=== PATIENT | female | born 1950 | race Caucasian/White ===

== ENCOUNTER 2016-07-29 10:39 | Observation (INO) | payer MEDICARE, BC ==
--- NOTE | 2016-07-29 11:10 | ERNOTE ---
Dyspnea - Date Date of Service: 07/29/16 - General Presenting Symptoms: shortness of breath Time Seen by Provider: 07/29/16 10:59 Source: patient - Immun/Allergies/Home Medications Immunizations: IMMUNIZATION HX Immunizations Up to Date Yes History of Influenza Vaccine Yes Hx Pneumococcal Vaccination Yes Allergies/Adverse Reactions: Allergies nitrofurantoin macrocrystalline [From Macrodantin] Allergy (Verified 07/29/16 11 :22) Nausea Sulfa (Sulfonamide Antibiotics) Allergy (Verified 07/29/16 11:22) amiodarone Adverse Reaction (Verified 07/29/16 11:22) lisinopril Adverse Reaction (Verified 07/29/16 11:22) Cough Home Medications: HOME MEDICATIONS Levothyroxine Sodium [Synthroid] 50 mcg PO DAILY 09/06/13 [Last Taken 09/28/15 19:00] Lorazepam 1 mg PO QID PRN 09/06/13 [Last Taken 09/27/15] Aspirin [Aspirin Chewable] 81 mg PO DAILY 12/25/14 [Last Taken 09/28/15] Atorvastatin Calcium 20 mg PO DAILY 12/25/14 [Last Taken 09/28/15 19:00] Cholecalciferol (Vitamin D3) [Vitamin D3] 2,000 unit PO DAILY #30 tablet [Last Taken 09/28/15 19:00] Potassium Chloride [Klor-Con M20] 20 meq PO BID 01/28/16 [Last Taken Unknown] Apixaban [Eliquis] 5 mg PO BID 03/01/16 [Last Taken Unknown] Bumetanide [Bumex] 2 mg PO DAILY 03/01/16 [Last Taken Unknown] Ipratropium/Albuterol Sulfate [Combivent Respimat Inhal [place]] 1 puff IH QID [Last Taken Unknown] Multivitamin [One Daily Essential] 1 each PO DAILY 03/01/16 [Last Taken Unknown] Fluticasone Propionate [Flonase Allergy Relief] 9.9 ml NS 07/23/16 [Last Taken Unknown] Ipratropium/Albuterol Sulfate [Combivent Respimat Inhal [place]] 1 puff IH QID 11/03 [Last Taken Unknown] Ranitidine HCl [Zantac] 150 mg PO BID 07/23/16 [Last Taken Unknown] Spironolactone [Aldactone] 25 mg PO DAILY 07/23/16 [Last Taken Unknown] - History of Present Illness Narrative: Pt woke up this morning feeling pretty good but became more SOB over the next 3- 4 hours. Date (Duration): 07/29/16 Severity: moderate Treatment [employer]: oxygen Initiating event: Reports: other - pt was at pulmonary rehab and it started getting worse Frequency of episodes: Reports: occassional episodes Modifying Factors (Worsens): Reports: activity Review of Systems - Review of Systems Constitutional: Present: See HPI EYE: Present: no symptoms reported ENT: Present: no symptoms reported Respiratory: Present: shortness of breath Cardiology: Present: no symptoms reported Gastrointestinal/Abdominal: Present: no symptoms reported Genitourinary: Present: no symptoms reported Musculoskeletal: Present: no symptoms reported Skin: Present: no symptoms reported Neurological: Present: no symptoms reported Endocrine: Present: no symptoms reported Hematologic/Lymphatic: Present: no symptoms reported Psych: Present: no symptoms reported - Patient's Past Medical History Patient History - Cardiac/Respiratory: Atrial Fibrillation, Coronary Heart Disease, Hypertension, Hyperlipidemia, Myocardial Infarction, Peripheral Vascular Disease, Sleep Apnea, Other Patient History - Cancer: No Hx of Cancer Patient History - Surgical Procedures: Cataracts, Cardiac stent, Pacemaker, Tubal Ligation - Family History Mother Family History - Medical: Diabetes Type 1 Family History - Cardiac/Respiratory: Hypertension Father Family History - Medical: Anxiety Family History - Cardiac/Respiratory: Coronary Heart Disease Brother Family History - Medical: Family History - Cardiac/Respiratory: COPD - Social History Living Situations: home Smoking Status: Former smoker Alcohol Use: none Drug Use: none Physical Exam - Physical Exam General Appearance: Present: wd/wn, alert, moderate distress Eye Exam: Normal inspection: bilateral, PERRL: bilateral Ears, Nose, Throat: Present: normal ENT inspection, hearing grossly normal, normal pharynx Neck: Present: normal inspection, nontender Respiratory: Present: decreased breath sounds, other - fine coarse breath sounds Cardiovascular/Chest: Present: regular rate, rhythm, no murmur, normal peripheral pulses Gastrointestinal/Abdominal: Present: normal bowel sounds, nontender, nondistended, soft, no organomegaly Rectal Exam: Present: deferred Back Exam: Present: normal inspection, normal range of motion Extremity Exam: Present: normal inspection, non-tender, no edema, normal range of motion Neurological Exam: Present: alert, oriented, normal mood/affect Skin Exam: Present: normal color, warm/dry Lymphatic Exam: Present: no adenopathy ED Progress - Results and Orders Patient's Lab Results:: I have reviewed the patient's lab results. - Vital Signs Patient's Vital Signs:: I have reviewed the patient's vital signs. Vital Signs: Vital Signs 07/29/16 07/29/16 10:43 10:49 Temperature 35.3 C L Pulse Rate 84 80 Respiratory 17 12 Rate Blood Pressure 82/66 O2 Sat by Pulse 88 L 91 Oximetry - EKG EKG: NSR - X-Ray X-Ray #1 X-Ray: chest Interpretation: Reviewed by me - Progress/Reassessment Chief Complaint: Dyspnea Progress:: Unchanged - Transfer of Care Expected Disposition: Admit Plan - Plan Plan: Pt will need to be admitted for cautious diuresis. Departure Clinical Impression: CHF (congestive heart failure) - Departure Disposition: [facility] Condition: Fair
[2016-07-29] MEDS ORDERED: ALBUTEROL SULFATE/IPRATROPIUM 3 ML NEBU IH ONE ×2 (11:12→11:13)
[2016-07-29 11:19] LABS: Hematocrit 40.1 % (37.0-47.0); Hemoglobin 13.3 gm/dL (12.5-16.0); Mean Cell Volume 106.4 fl (78-100); Mean Corpuscular Hemoglobin 35.3 pg (27-31); Mean Corpuscular Hgb Conc 33.2 g/dl (32-36); Neutrophil # 4.9 K/mm3 (1.3-6.0); Platelet Count 91 K/mm3 (150-450); Red Blood Count 3.77 M/mm3 (4.2-5.4); Red Cell Distribution Width 20.2 % (11.5-14.0); White Blood Count 6.4 K/mm3 (4.0-10.5)
[2016-07-29 11:42] LABS: Albumin * 2.8 gm/dl (3.4-5.0); Anion Gap 12.5 mmol/L (6.8-13.8); Bilirubin, Total 2.4 mg/dL (0.0-1.1); Calcium * 9.4 mg/dL (7.9-10.9); Carbon Dioxide 26.3 mmol/L (24-32.6); Potassium 3.8 mmol/L (3.4-4.6); Total Protein 7.4 gm/dL (6.2-8.2); Troponin I 0.046 ng/ml (0.00-0.10)
[2016-07-29] MEDS ORDERED: METOLAZONE 5 MG TABLET PO ONE (13:29)
[2016-07-29] MEDS ORDERED: FUROSEMIDE 10 MG/ML VIAL IV ONE (13:29)
[2016-07-29] MEDS ORDERED: METOLAZONE 5 MG TABLET ONE (13:45)
[2016-07-29] MEDS ORDERED: FUROSEMIDE 10 MG/ML VIAL ONE ×2 (13:45)
[2016-07-29 16:42] LABS: Urine Bilirubin Negative (NEGATIVE); Urine Blood 250 /ul (NEGATIVE); Urine Ketone Negative (NEGATIVE); Urine Nitrite Negative (NEGATIVE); Urine Protein Negative (NEGATIVE); Urine Specific Gravity 1.015 SP.GR. (1.005-1.010); Urine Urobilinogen Normal (NORMAL)
[2016-07-29] MEDS ORDERED: SPIRONOLACTONE 25 MG TABLET PO STA (17:02)
--- NOTE | 2016-07-29 17:02 | HP ---
Chief Complaint - Chief Complaint Date of Service: 07/29/16 Time of Service: 17:02 Chief Complaint: Sudden onset of shortness of breath and difficulty in breathing during pulmonary rehabilitation on the morning of admission. History of Present Illness: Patient is a 66-year-old WF with a H/O ILD, COPD, A. fib, liver cirrhosis, anemia, chronic respiratory failure on 2-3 L of O2 who started pulmonary rehabilitation on 07/28/2016 and became suddenly short of breath on 07/29/2016 during pulmonary rehabilitation. Her sats dropped down to 84% on O2. She denied chest pain, syncope,increased pedal edema etc. Her CXR showed increase in interstitial markings though her BNP was only 585 and troponin 0.046. She was admitted for further care and treatment into observation. - Patient's Past Medical History Additional info: PAST MEDICAL HISTORY: CAD[Inf. wall [place] with cardiogenic shock s/p stents RCA/2008], chronic A. fib[ cardioverted in 2013] initially on Coumadin, now on Eliquis 5 mg PO BID. COPD/ILD/chronic respiratory failure on 2-3L O2. 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 KRISTEN : 12/06/2015:EF 55-60%, mild to mod. MR, mild TR, no thrombus LAE, RVSP 44 mm Hg. TTE : 12/11/2015: EF 55%, LAE,RVSP [address] of the chest: 01/02: centrilobular emphysema/ILD. DLCO was reduced at 22% Liver cirrhosis, macrocytic anemia, PAD, HLD. Biventricular pacemaker placement for A. fib 03/2016 Patient History - Cancer: No Hx of Cancer Additional Info: PAST SURGICAL HISTORY: Tubal ligation; stent to RCA 10/2008; cardioversion 2013, 02/2016; bilateral cataract surgery 05/2015; cardiac cath 09/2015[elevated filling pressures with moderate to severe pulmonary HTN, mildly depressed C.I.]; biventricular pacemaker implant 03/2016. - Family History Brother Additional Info: Mother - DM type I Alzheimer's. Father died69 CAD. [place]. Brother died64 COPD. - Social History Living Situations: home Smoking Status: Heavy tobacco smoker - in the past Have you smoked in the past 12 months: No Do you dip or chew tobacco: No Smoking Stop Date: 07/29/08 Patient requests Smoking Cessation Consult: No Initiate information on Smoking Cessation: No Alcohol Use: none Drug Use: none Review Of Systems (GEN) - Review of Systems Generalized/Overall Review: Absent: Weakness, Chills, Fever Respiratory: Present: Shortness of Breath - chronic gradually improving. Absent : Cough Cardiac: Present: Edema. Absent: Chest Pain, Palpitations Abdominal: Absent: Nausea, Vomiting Allergies/Adverse Reactions: Allergies Allergy/AdvReac Type Severity Reaction Status Date / Time nitrofurantoin Allergy Nausea Verified 07/29/16 15:08 macrocrystalline [From Macrodantin] Sulfa (Sulfonamide Allergy Verified 07/29/16 15:08 Antibiotics) amiodarone AdvReac Verified 07/29/16 15:08 lisinopril AdvReac Cough Verified 07/29/16 15:08 Home Medications: HOME MEDICATIONS Levothyroxine Sodium [Synthroid] 50 mcg PO DAILY 09/06/13 [Last Taken 09/28/15 19:00] Lorazepam 1 mg PO QID 09/06/13 [Last Taken 09/27/15] Aspirin [Aspirin Chewable] 81 mg PO DAILY 12/25/14 [Last Taken 09/28/15] Atorvastatin Calcium 20 mg PO HS 12/25/14 [Last Taken 09/28/15 19:00] Cholecalciferol (Vitamin D3) [Vitamin D3] 2,000 unit PO DAILY #30 tablet [Last Taken 09/28/15 19:00] Potassium Chloride [Klor-Con M20] 20 meq PO BID 01/28/16 [Last Taken Unknown] Apixaban [Eliquis] 5 mg PO BID 03/01/16 [Last Taken Unknown] Bumetanide [Bumex] 2 mg PO DAILY 03/01/16 [Last Taken Unknown] Ipratropium/Albuterol Sulfate [Combivent Respimat Inhal [place]] 1 puff IH QID PRN 03/01/16 [Last Taken Unknown] Multivitamin [One Daily Essential] 1 each PO DAILY 03/01/16 [Last Taken Unknown] Fluticasone Propionate [Flonase Allergy Relief] 1 spray NS DAILY 07/23/16 [Last Taken Unknown] Ranitidine HCl [Zantac] 150 mg PO BID 07/23/16 [Last Taken Unknown] Spironolactone [Aldactone] 25 mg PO DAILY 07/23/16 [Last Taken Unknown] Acetaminophen [Tylenol] 325 mg PO Q4H PRN 07/29/16 [Last Taken Unknown] Ipratropium/Albuterol Sulfate [Combivent Respimat Inhal [place]] 1 puff IH QID 05/05 [Last Taken Unknown] Exam - Exam Vital Signs: Vital Signs - Last Taken Temp 36.8 C 07/29/16 15:00 Pulse 80 07/29/16 16:22 Resp 16 07/29/16 15:00 BP 93/63 07/29/16 15:00 Pulse Ox 97 07/29/16 15:00 Constitutional: Present: Middle aged, Looks Older than stated age - on O2 ENT Exam: Present: hearing grossly normal, moist mucous membranes Eye Exam: bilateral eye: PERRL, EOMI Neck: Present: normal inspection, trachea midline Breasts: Present: Exam deferred Respiratory: Present: no respiratory distress, no accessory muscle use, crackles - bilaterally in both lungs Cardiovascular/Chest: Present: regular rate, rhythm, systolic murmur. Absent: tachycardia Peripheral Pulses: carotid (R): 2+, carotid (L): 2+ Abdomen: Present: Normal bowel sounds, soft, nontender, nondistended /Rectal: Present: Exam deferred Extremity: Present: normal inspection, lower extremity edema - 1+ Skin Exam: Present: normal color, warm/dry Appearance: Present: appropriate appearance, appropriate insight, neat Eye contact: Present: cooperative, good eye contact, normal speech Diagnostic Studies: Laboratory Tests 07/29/16 11:10 WBC 6.4 Hgb 13.3 Hct 40.1 MCV 106.4 H Plt Count 91 L 07/29/16 11:10 Plasma Sodium 138 Potassium 3.8 Chloride 101 Carbon Dioxide 26.3 BUN 20 Creatinine 1.33 Est GFR (Non-Af Amer) 42 L Random Glucose 197 H Calcium Adj for Albumin 10.0 Total Bilirubin 2.4 H AST 45 ALT 37 Alkaline Phosphatase 109 Total Protein 7.4 Albumin 2.8 L 07/29/16 11:10 Troponin I 0.046 B-Natriuretic Peptide 585 H CXR: 07/29/2016: 1. Pulmonary venous congestion and interstitial edema suggested. 2. Interval placement of pacemaker 3. Hypoinflated lungs and stable cardiomegaly. Assessment/Plan - Narrative Narrative: 1. Acute on chronic diastolic heart failure: Patient will be given metolazone 1.25 mg followed by furosemide 120 mg IV and spironolactone 50 mg PO x 1 on admission. Check daily weights and I's and O's. oxygen to be titrated to maintain saturation of 90% and greater. Initial troponin was negative. Unclear to what caused exacerbation of CHF. 2. COPD/ILD on 2-3 L of O2: Continue Combivent and inhaler 1-2 puffs 4 times a day and O2 2-4 L. She has joined pulmonary rehabilitation. 3. Chronic A. fib: S/P biventricular pacemaker placement and on Eliquis 5 mg PO BID. 4. Hyperlipidemia: On atorvastatin 20 mg by mouth daily. 5. Liver cirrhosis: History of macrocytic anemia with low platelets, increased bilirubin, currently not being treated.
[2016-07-29] MEDS ORDERED: ALBUTEROL SULFATE/IPRATROPIUM 3 ML NEBU IH PRN (17:03)
[2016-07-29 17:08] LABS: Urine Appearance Cloudy; Urine Bacteria 1+; Urine RBC 25-50 /hpf (0-5); Urine WBC None Seen /hpf (0-5)
[2016-07-29] MEDS: APIXABAN 2.5 MG TABLET PO SCH (20:17)
[2016-07-29] MEDS: FAMOTIDINE 20 MG TABLET PO SCH (20:17)
[2016-07-29] MEDS: LORazepam 1 MG TABLET PO SCH (20:19)
[2016-07-29] MEDS ORDERED: ROSUVASTATIN CALCIUM 10 MG TABLET PO SCH (21:00)
[2016-07-29] MEDS ORDERED: HYDROcodone/ACETAMINOPHEN 1 EACH TABLET PO PRN (23:40)
[2016-07-30 05:56] LABS: Anion Gap 13.9 mmol/L (6.8-13.8); BUN/Creatinine Ratio 14.9 (9.0-21.6); Calcium * 9.6 mg/dL (7.9-10.9); Carbon Dioxide 26.7 mmol/L (24-32.6); Estimated Creat Clear 34.2; Potassium 3.6 mmol/L (3.4-4.6)
[2016-07-30] MEDS ORDERED: LEVOTHYROXINE SODIUM 50 MCG TABLET PO SCH (07:00)
[2016-07-30] MEDS ORDERED: FLUTICASONE PROPIONATE 120 SPRAY INHALER NS SCH (09:00)
[2016-07-30] MEDS ORDERED: ASPIRIN 81 MG TAB.CHEW PO SCH (09:00)
[2016-07-30] MEDS ORDERED: FUROSEMIDE 10 MG/ML VIAL IV STA (09:18)
[2016-07-30] MEDS: APIXABAN 2.5 MG TABLET PO SCH (09:22)
[2016-07-30] MEDS: LORazepam 1 MG TABLET PO SCH ×2 (09:23→13:49)
[2016-07-30] MEDS: FAMOTIDINE 20 MG TABLET PO SCH (09:24)
[2016-07-30] MEDS ORDERED: FUROSEMIDE 100 MG, FUROSEMIDE 20 MG IV STA ×2 (09:35)
[2016-07-30] MEDS ORDERED: SPIRONOLACTONE 100 MG TABLET PO ONE (09:40)
--- NOTE | 2016-07-30 11:01 | DS ---
(1) Acute on chronic diastolic heart failure Problem: Acute (2) Hematuria Diagnosis(s): Scheduled for a CT of abdomen/pelvis W/O as outpt; then urology consult. Problem: Acute (3) COPD/ILD on 2-3L O2 Problem: Chronic (4) Atrial fibrillation, chronic Diagnosis(s): s/p biventricular pacemaker placement and on Eliquis 5 mg PO BID. Problem: Chronic (5) Cirrhosis of liver Diagnosis(s): With macrocytic anemia, decreased platelets, elevated bilirubin. Problem: Chronic Qualifiers: Hepatic cirrhosis type: other cirrhosis Qualified Code(s): K74.69 - Other cirrhosis of liver (6) CAD (coronary artery disease), [place] coronary artery Diagnosis(s): with stent to RCA in 2008. Problem: Chronic Qualifiers: [place] vs. transplanted heart: [place] heart Associated angina: without angina Qualified Code(s): I25.10 - Atherosclerotic heart disease of [place] coronary artery without angina pectoris Description of Stay: DATE OF ADMISSION: 07/29/2016. DATE OF DISCHARGE: 07/30/2016. HOSPITAL COURSE: Malorie Joseph is a 66-year-old WF with a H/O ILD, COPD, A. fib, liver cirrhosis , anemia, hypothyroidism, chronic respiratory failure on 2-3 L of O2 who became suddenly short of breath on 07/29/2016 on her second day of pulmonary rehabilitation with sats dropping down to 84-86% on 4 L O2. Her weight was 151 pounds[up 4 pounds from her dry weight of 147 pounds]. She was planning to take Bumex 3 mg after she went home. She denied chest pain, syncope, palpitations etc. Mild increase in pedal edema noted. Her CXR showed increase in interstitial markings though her BNP was only 585 and troponin 0.046. She was admitted into observation for further care and treatment. Patient diuresed well with metolazone PO, furosemide IV and spironolactone PO. She was in negative balance by 2 L. She was advised to take extra bumetanide 1 mg when she gains 3-4 pounds. She also had painless hematuria w/o UTI . Scheduled to undergo CT of the abdomen/pelvis W/O as an outpatient and will see a urologist as a consult. Patient was educated regarding weighing herself on a daily basis, taking extra bumetanide when she gains weight and being more compliant with her medication. She is being discharged in a stable condition with follow-up in 2 weeks. Can restart pulmonary rehabilitation at a slow pace for 5-10 mins at a time [ which may not be possible as one has to exercise for 45 minutes in order for Medicare to pay for a session]. Procedures Performed: none Results and Findings: Laboratory Tests 07/29/16 11:10 WBC 6.4 RBC 3.77 L Hgb 13.3 Plt Count 91 L 07/29/16 07/30/16 11:10 05:00 Plasma Sodium 138 136 Potassium 3.8 3.6 Chloride 101 99 Carbon Dioxide 26.3 26.7 BUN 20 20 Creatinine 1.33 1.34 Est GFR (Non-Af Amer) 42 L 42 L Random Glucose 197 H 101 D Calcium Adj for Albumin 10.0 Total Bilirubin 2.4 H AST 45 ALT 37 Alkaline Phosphatase 109 Total Protein 7.4 Albumin 2.8 L CXR: 07/29/2016: 1. Pulmonary venous congestion and interstitial edema suggested. 2. Interval placement of pacemaker 3. Hypoinflated lungs and stable cardiomegaly. 07/29/16 07/30/16 15:00 05:34 Weight 68.3 kg 66.8 kg Negative balance -2115 ml. Discharge Disposition: Home self care Disposition: Home self-care Condition: Fair Discharge Activity: Activity as tolerated Discharge Diet: Low salt, Low fat/chol, High Fiber Problem Oriented Discharge Instructions to Patient/Family: Heart Failure, Easy- to-Read Additional Patient Instructions (free text): Resume home meds from 07/31/2016. Make appointment with one of the urologists for hematuria after a CT scan of abdomen/pelvis w/o contrast is done. CT 08/04 AT 9:00. Follow up with Urology Dr. Altamirano 08/08 at 11:30 in [facility] office. Dry weight 147 pounds. If weight increases by 3 pounds patient to take 1 mg of extra Bumex. Pulmonary rehabilitation can be rescheduled. Can start Pulm Rehab on 08/01/2016. Continue oxygen as before. Follow-up with the [facility] specialists as previously scheduled. Follow-up with Dr. Gomez in 2 weeks. 08/13 at 2:25 Complete Home Medications List: Complete Home Medication List: Levothyroxine Sodium [Synthroid] 50 mcg PO DAILY 09/06/13 Lorazepam 1 mg PO QID 09/06/13 Aspirin [Aspirin Chewable] 81 mg PO DAILY 12/25/14 Atorvastatin Calcium 20 mg PO HS 12/25/14 Cholecalciferol (Vitamin D3) [Vitamin D3] 2,000 unit PO DAILY #30 tablet Potassium Chloride [Klor-Con M20] 20 meq PO BID 01/28/16 Apixaban [Eliquis] 5 mg PO BID 03/01/16 Bumetanide [Bumex] 2 mg PO DAILY 03/01/16 Ipratropium/Albuterol Sulfate [Combivent Respimat Inhal [place]] 1 puff IH QID PRN 03/01/16 Multivitamin [One Daily Essential] 1 each PO DAILY 03/01/16 Fluticasone Propionate [Flonase Allergy Relief] 1 spray NS DAILY 07/23/16 Ranitidine HCl [Zantac] 150 mg PO BID 07/23/16 Spironolactone [Aldactone] 25 mg PO DAILY 07/23/16 Acetaminophen [Tylenol] 325 mg PO Q4H PRN 07/29/16 Ipratropium/Albuterol Sulfate [Combivent Respimat Inhal [place]] 1 puff IH QID 05/05 Amb Orders for Discharge: CT Abdomen/Pelvis W/O Contrast Time Frame: 1 Week, Location: Determined By Patient
[2016-07-30] MEDS ORDERED: CHOLECALCIFEROL 1,000 UNIT CAPSULE PO SCH (12:00)
[2016-07-30 14:26] VITALS: BP 92/61
== END 2016-07-30 14:45 | disposition home or self-care (01) ==
LOC: ER 10:39 → INTOOBSV 13:37 → MS 13:37 → OBSVTOIN 13:37
PROVIDERS: ADMIT Internal Medicine; ATTEND Internal Medicine
DX: I50.33 Acute on chronic diastolic (congestive) heart failure (principal); J44.9 Chronic obstructive pulmonary disease, unspecified; Z87.891 Personal history of nicotine dependence; I48.2 Chronic atrial fibrillation; Z79.01 Long term (current) use of anticoagulants; E78.5 Hyperlipidemia, unspecified; K74.69 Other cirrhosis of liver; I25.10 Atherosclerotic heart disease of native coronary artery without angina pectoris; R31.9 Hematuria, unspecified
CPT/HCPCS: 36415; 36600; 71010; 80048; 80053; 81001; 82803; 83880; 84484; 85025; 93005; 94760; 96374; 99284; G0378

== ENCOUNTER 2016-08-25 13:00 | Observation (INO) | payer MEDICARE, BC ==
[2016-08-25 13:26] LABS: Prothrombin Time (Patient) 13.5 Seconds (9.4-11.4)
[2016-08-25 13:27] LABS: INR 1.3 INR (0.90-1.10)
[2016-08-25 13:29] LABS: Anion Gap 14.6 mmol/L (6.8-13.8); BUN/Creatinine Ratio 15.8 (9.0-21.6); Blood Urea Nitrogen 19 mg/dL (3-23); Carbon Dioxide 24.2 mmol/L (24-32.6); Chloride 101 mmol/L (97-106); Glucose * 139 mg/dL (70-110); Potassium 3.8 mmol/L (3.4-4.6); Sodium 136 mmol/L (132-142)
--- NOTE | 2016-08-25 14:39 | HP ---
Chief Complaint - Chief Complaint Date of Service: 08/25/16 Time of Service: 14:38 Chief Complaint: Shortness of breath and weight gain for the last few days. History of Present Illness: Patient is a 65-year-old WF with a history of CAD, chronic A. fib, BiV pacemaker in 03/2016, PAD, HLD, COPD/ILD on O2 who came into the office follow up. She stated that she was significantly short of breath in spite of doubling up on her Bumex [2mg -4 mg], watching her diet, and continued to gain weight for the last 1 week. She denied any chest pain. She was admitted for further care and treatment. - Patient's Past Medical History Additional info: PAST MEDICAL HISTORY: CAD[Inf. wall [place] with cardiogenic shock s/p stents ], chronic A. fib[ cardioverted in 2013] initially on Coumadin, now on Eliquis 5 mg PO BID. COPD/ILD/chronic respiratory failure on 2-3L O2. 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 KRISTEN : 12/06/2015:EF 55-60%, mild to mod. MR, mild TR, no thrombus LAE, RVSP 44 mm Hg. TTE : 12/11/2015: EF 55%, LAE,RVSP [address] of the chest: 01/02: centrilobular emphysema/ILD. DLCO was reduced at 22% Liver cirrhosis, macrocytic anemia, PAD, HLD. Biventricular pacemaker placement for A. fib 03/2016 Patient History - Cancer: No Hx of Cancer Additional Info: PAST SURGICAL HISTORY: Tubal ligation; stent to RCA 10/2008; cardioversion 2013, 02/2016; bilateral cataract surgery 05/2015; cardiac cath 09/2015[elevated filling pressures with moderate to severe pulmonary HTN, mildly depressed C.I.]; biventricular pacemaker implant 03/2016. Patient History - Other: None - Family History Mother Family History - Medical: Diabetes Type 1 Family History - Cardiac/Respiratory: Hypertension Father Family History - Medical: Anxiety Family History - Cardiac/Respiratory: Coronary Heart Disease Brother Additional Info: Mother - DM type I Alzheimer's. Father died69 CAD. [place]. Brother died64 COPD. - Social History Living Situations: significant other Abuse History: No History of abuse Psych History: Hx of Depression Does anyone smoke in the home?: No Smoking Status: Former smoker - 1 PPD x 45 yrs; quit in 2010. Have you smoked in the past 12 months: No Do you dip or chew tobacco: No Smoking Start Date: 07/20/64 Smoking Stop Date: 07/20/10 Patient requests Smoking Cessation Consult: No Initiate information on Smoking Cessation: No Alcohol Use: none Drug Use: none - Immunizations Immunizations Up to Date: Yes Hx Pneumococcal Vaccination: Yes History of Influenza Vaccine: Yes Review Of Systems (GEN) - Review of Systems Generalized/Overall Review: Present: Weakness, Fatigue Respiratory: Present: Cough, Shortness of Breath Cardiac: Present: Edema - [place] Immunizations: IMMUNIZATION HX Immunizations Up to Date Yes History of Influenza Vaccine Yes Hx Pneumococcal Vaccination Yes Allergies/Adverse Reactions: Allergies Allergy/AdvReac Type Severity Reaction Status Date / Time nitrofurantoin Allergy Nausea Verified 07/29/16 15:08 macrocrystalline [From Macrodantin] Sulfa (Sulfonamide Allergy Verified 07/29/16 15:08 Antibiotics) amiodarone AdvReac Verified 07/29/16 15:08 lisinopril AdvReac Cough Verified 07/29/16 15:08 Home Medications: HOME MEDICATIONS Levothyroxine Sodium [Synthroid] 50 mcg PO DAILY 09/06/13 [Last Taken 08/25/16 09:00] Lorazepam 1 mg PO QID 09/06/13 [Last Taken 09/27/15] Aspirin [Aspirin Chewable] 81 mg PO DAILY 12/25/14 [Last Taken 08/22/16 09:00] Atorvastatin Calcium 20 mg PO HS 12/25/14 [Last Taken 08/24/16 21:00] Cholecalciferol (Vitamin D3) [Vitamin D3] 2,000 unit PO DAILY #30 tablet [Last Taken 08/25/16 09:00] Potassium Chloride [Klor-Con M20] 20 meq PO BID 01/28/16 [Last Taken 08/25/16 09 :00] Apixaban [Eliquis] 5 mg PO BID 03/01/16 [Last Taken 08/25/16 09:00] Bumetanide [Bumex] 4 mg PO DAILY 03/01/16 [Last Taken 08/25/16 09:00] Ipratropium/Albuterol Sulfate [Combivent Respimat Inhal [place]] 1 puff IH QID PRN 03/01/16 [Last Taken 08/25/16 09:00] Multivitamin [One Daily Essential] 1 each PO DAILY 03/01/16 [Last Taken 09:00] Fluticasone Propionate [Flonase Allergy Relief] 1 spray NS DAILY 07/23/16 [Last Taken 08/25/16 09:00] Ranitidine HCl [Zantac] 150 mg PO BID 07/23/16 [Last Taken 08/25/16 09:00] Spironolactone [Aldactone] 25 mg PO DAILY 07/23/16 [Last Taken 08/25/16 09:00] Acetaminophen [Tylenol] 325 mg PO Q4H PRN 07/29/16 [Last Taken Unknown] Ipratropium/Albuterol Sulfate [Combivent Respimat Inhal [place]] 1 puff IH QID 05/05 [Last Taken 08/25/16 10:30] Carvedilol [Coreg] 3.125 mg PO BID 08/25/16 [Last Taken Unknown] Ipratropium [place] 0.2 mg IH QID 08/25/16 [Last Taken Unknown] Exam - Exam Vital Signs: Vital Signs - Last Taken Temp 36.4 C L 08/25/16 14:16 Pulse 80 08/25/16 14:16 Resp 20 08/25/16 14:16 BP 103/64 08/25/16 14:16 Pulse Ox 90 08/25/16 14:16 Constitutional: Present: Middle aged, Looks Older than stated age - on 2-3 L O2 looks uncomfortable. ENT Exam: Present: hearing grossly normal, moist mucous membranes Eye Exam: bilateral eye: PERRL, EOMI Neck: Present: non-tender, normal inspection Respiratory: Present: decreased breath sounds, crackles - bilaterally. Absent: accessory muscle use Cardiovascular/Chest: Present: regular rate, rhythm, systolic murmur. Absent: tachycardia Peripheral Pulses: carotid (R): 2+, carotid (L): 2+ Abdomen: Present: Normal bowel sounds, soft, nontender, nondistended Extremity: Present: lower extremity edema - 1+ Skin Exam: Present: warm/dry, pallor Neurologic: Present: no motor/sensory deficits, alert, normal mood/affect, oriented x 3 Eye contact: Present: cooperative, good eye contact, normal speech Diagnostic Studies: Laboratory Tests 08/25/16 13:12 WBC 6.5 Hgb 14.3 Hct 42.6 Plt Count 110 L 08/25/16 13:09 Plasma Sodium 137 Potassium 3.8 Chloride 101 Carbon Dioxide 24.2 BUN 19 Creatinine 1.20 Est GFR (Non-Af Amer) 48 L Random Glucose 139 H 08/25/16 14:16 Weight 70.4 kg Assessment/Plan - Narrative Narrative: ssessment/Plan - Narrative Narrative: 1. Acute on chronic diastolic heart failure: Patient will be given metolazone 2.5 mg PO x1 followed by furosemide 240 mg IV and spironolactone 100 mg PO x 1 on admission. oxygen to be titrated to maintain saturation of 90% and greater. BMP on 08/26/16. Check daily weights and I's and O's. 2. COPD/ILD on 2-3 L of O2: Continue Combivent and inhaler 1-2 puffs 4 times a day and O2 2-4 L. 3. Chronic A. fib: Chronic and stable. Continue Eliquis 5 mg PO BID. S/P biventricular pacemaker placement 03/2016. 4. Hyperlipidemia: Chronic and stable. Continue atorvastatin 20 mg PO daily. 5. Liver cirrhosis: History of macrocytic anemia with low platelets -stable Additional CC's: Dr. Lugo
[2016-08-25] MEDS ORDERED: METOLAZONE 2.5 MG TABLET PO ONE (14:50)
[2016-08-25 15:03] LABS: Hematocrit 42.6 % (37.0-47.0); Hemoglobin 14.3 gm/dL (12.5-16.0); Mean Cell Volume 107.8 fl (78-100); Mean Corpuscular Hemoglobin 36.2 pg (27-31); Mean Corpuscular Hgb Conc 33.6 g/dl (32-36); Mean Platelet Volume 10.1 fl (6.0-9.5); Neutrophil # 4.8 K/mm3 (1.3-6.0); Neutrophil % 74.1 % (42-75.0); Platelet Count 110 K/mm3 (150-450); Red Blood Count 3.95 M/mm3 (4.2-5.4); Red Cell Distribution Width 20.4 % (11.5-14.0); White Blood Count 6.5 K/mm3 (4.0-10.5)
[2016-08-25] MEDS ORDERED: ALBUTEROL SULFATE/IPRATROPIUM 3 ML NEBU IH PRN (15:18)
[2016-08-25] MEDS ORDERED: ACETAMINOPHEN 325 MG TABLET PO PRN (15:18)
[2016-08-25] MEDS ORDERED: FUROSEMIDE IV ONE (15:45)
[2016-08-25] MEDS ORDERED: NORMAL SALINE IV ONE (15:45)
[2016-08-25] MEDS ORDERED: SPIRONOLACTONE 100 MG TABLET PO ONE (16:00)
--- NOTE | 2016-08-25 16:06 | OR ---
Anesthesia Procedure Note - Anesthesia Procedure Note Date of Service: 08/25/16 Narrative: Vital Signs - Last Taken Temp 36.4 C L 08/25/16 14:16 Pulse 80 08/25/16 14:16 Resp 20 08/25/16 14:16 BP 103/64 08/25/16 14:16 Pulse Ox 90 08/25/16 14:16 O2 Oxygen Delivery Method Nasal Cannula 08/25/16 16:05 ANESTHESIA PROCEDURE NOTE Date of Procedure: 08/25/2016. Time of procedure: 1550. Performed by: Tim Bustillo CRNA Sports Physiotherapist: None. Preprocedure diagnosis: Congestive heart failure, difficult IV access. Post procedure diagnosis: Same. Procedure: Peripheral vein IV insertion. Indications: This is a 66-year-old female in need of an IV whereas nursing staff has been able to establish an IV. Findings: See below. Details of the procedure: Skin over the intended target site was cleansed with alcohol. A 20-gauge IV catheter was inserted into a right hand vein. A sterile dressing was applied over the insertion site. The line was then flushed with sterile saline solution. EBL: Minimal. Fluids: N/A. Specimen: N/A. Post procedure condition: The patient tolerated the procedure well. No complications were noted. Thank you for this consultation. Tim Bustillo CRNA
[2016-08-25] MEDS: LORazepam 1 MG TABLET PO SCH ×2 (16:19→20:31)
[2016-08-25] MEDS ORDERED: FLU VACC QS2016-17 36MOS UP/PF 60 MCG/0.5 ML DISP.SYRIN IM ONE (18:00)
[2016-08-25] MEDS: CARVEDILOL 3.125 MG TABLET PO SCH (20:31)
[2016-08-25] MEDS: FAMOTIDINE 20 MG TABLET PO SCH (20:31)
[2016-08-25] MEDS: APIXABAN 2.5 MG TABLET PO SCH (20:31)
[2016-08-25] MEDS ORDERED: ROSUVASTATIN CALCIUM 10 MG TABLET PO SCH (21:00)
[2016-08-25 22:29] LABS: Potassium 3.5 mmol/L (3.4-4.6)
[2016-08-25 23:02] LABS: Anion Gap 14.3 mmol/L (6.8-13.8); BUN/Creatinine Ratio 16.3 (9.0-21.6); Calcium * 9.4 mg/dL (7.9-10.9); Carbon Dioxide 28.2 mmol/L (24-32.6); Estimated Creat Clear 35.5; Potassium 3.5 mmol/L (3.4-4.6)
[2016-08-25] MEDS ORDERED: SPIRONOLACTONE 100 MG TABLET PO SCH (23:30)
[2016-08-25] MEDS ORDERED: IPRATROPIUM BROMIDE 0.5 MG/2.5 ML VIAL.NEB IH SCH (23:35)
[2016-08-25] MEDS ORDERED: ALBUTEROL SULFATE 5 MG/ML BTL IH SCH (23:45)
[2016-08-25] MEDS ORDERED: SPIRONOLACTONE 25 MG TABLET ONE (23:54)
[2016-08-26] MEDS ORDERED: SPIRONOLACTONE 25 MG TABLET PO ONE (00:15)
[2016-08-26 05:37] LABS: Anion Gap 12.8 mmol/L (6.8-13.8); BUN/Creatinine Ratio 17.1 (9.0-21.6); Calcium * 9.1 mg/dL (7.9-10.9); Carbon Dioxide 26.4 mmol/L (24-32.6); Estimated Creat Clear 39.1; Potassium 3.2 mmol/L (3.4-4.6)
[2016-08-26] MEDS ORDERED: POTASSIUM CHLORIDE 20 MEQ TABLET.SA PO ONE (06:21)
[2016-08-26] MEDS ORDERED: SPIRONOLACTONE 100 MG TABLET PO SCH (06:30)
--- NOTE | 2016-08-26 06:35 | PN ---
Subjective - Date and Time Seen Date: 08/26/16 Time: 06:26 Subjective Narrative: Patient seen this morning stated she was feeling much better. She had frequent urination overnight and was feeling tired and need to sleep. Her breathing was no longer labored and she wasn't wearing oxygen at the time. Objective - Review of Systems Generalized/Overall Review: Reports: No Symptoms Reported EENTM: Reports: No Symptoms Reported Respiratory: Reports: Wheezing Cardiac: Reports: No Symptoms Reported Abdominal: Reports: No Symptoms Reported Genitourinary Symptoms: Reports: Frequency Musculoskeletal Complaints: Reports: No Symptoms Reported Neurological: Reports: No Symptoms Reported Skin: Reports: No Symptoms Reported - Vitals Vitals: Last Vital Signs Temp 36.6 C 08/26/16 03:09 Pulse 76 08/26/16 03:09 Resp 22 H 08/26/16 03:09 BP 90/56 08/26/16 03:09 Pulse Ox 86 L 08/26/16 03:09 - Abnormal Lab Findings Abnormal Lab Findings: Abnormal Lab Results 08/25/16 08/25/16 08/25/16 Range/Units 13:05 13:09 13:12 RBC 3.95 L (4.2-5.4) M/mm3 MCV 107.8 H (78-100) fl MCH 36.2 H (27-31) pg RDW 20.4 H (11.5-14.0) % Plt Count 110 L (150-450) K/mm3 MPV 10.1 H (6.0-9.5) fl Immature Gran % (Auto) 0.50 H (0.001-0.429) % Lymphocytes % 14.0 L (20-51) % Eosinophils % 4.0 H (0.0-3.0) % Basophils % 1.1 H (0.0-1.0) % Lymphocytes # 0.9 L (1.5-3.5) k/mm3 PT 13.5 H (9.4-11.4) Seconds INR (Anticoag Therapy) 1.30 H (0.90-1.10) INR Potassium (3.4-4.6) mmol/L Anion Gap 14.6 H (6.8-13.8) mmol/L Est GFR (Non-Af Amer) 48 L (60-130) mL/min Random Glucose 139 H (70-110) mg/dL B-Natriuretic Peptide (5-325) pg/mL 08/25/16 08/25/16 08/26/16 Range/Units 22:00 22:51 05:05 RBC (4.2-5.4) M/mm3 MCV (78-100) fl MCH (27-31) pg RDW (11.5-14.0) % Plt Count (150-450) K/mm3 MPV (6.0-9.5) fl Immature Gran % (Auto) (0.001-0.429) % Lymphocytes % (20-51) % Eosinophils % (0.0-3.0) % Basophils % (0.0-1.0) % Lymphocytes # (1.5-3.5) k/mm3 PT (9.4-11.4) Seconds INR (Anticoag Therapy) (0.90-1.10) INR Potassium 3.2 L (3.4-4.6) mmol/L Anion Gap 14.3 H (6.8-13.8) mmol/L Est GFR (Non-Af Amer) 44 L 49 L (60-130) mL/min Random Glucose 139 H (70-110) mg/dL B-Natriuretic Peptide 769 H (5-325) pg/mL - Exam Constitutional: Present: Alert, Oriented x3, Cooperative, Well developed, No distress, Middle aged ENT Exam: Present: moist mucous membranes Breasts: Present: Exam deferred Respiratory: Present: chest non-tender, no accessory muscle use, decreased breath sounds, crackles Cardiovascular/Chest: Present: normal peripheral pulses, regular rate, rhythm, no chest tenderness, no edema, no JVD Abdomen: Present: Normal bowel sounds, soft, nontender, nondistended Extremity: Present: normal range of motion, non-tender, normal inspection, no calf tenderness Skin Exam: Present: normal color, warm/dry Neurologic: Present: oriented x 3 Appearance: Present: appropriate appearance Eye contact: Present: cooperative Thoughts: Present: normal thought pattern Assessment/Plan Plan Narrative: Acute on chronic diastolic heart failure: On adm pt was given metolazone 2.5 mg PO x1 followed by furosemide 240 mg IV and spironolactone 100 mg PO x 1. Oxygen to be titrated to maintain saturation of 90% and greater. 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 Chronic A. fib:- Stable Continue Eliquis 5 mg PO BID. 03/2016 S/P : biventricular pacemaker placement Hyperlipidemia:- stable Continue atorvastatin 20 mg PO daily. Liver cirrhosis: History of macrocytic anemia with low platelets -stable VTE ppx: Code Status : Full with restriction Time 20 minutes - Problems/Diagnosis (1) Acute on chronic diastolic heart failure Problem: Acute (2) Atrial fibrillation Problem: Chronic (3) CKD (chronic kidney disease) stage 3, GFR 30-59 ml/min Problem: Chronic
[2016-08-26] MEDS ORDERED: LEVOTHYROXINE SODIUM 50 MCG TABLET PO SCH (07:00)
[2016-08-26] MEDS ORDERED: SPIRONOLACTONE 100 MG TABLET PO ONE (07:15)
[2016-08-26] MEDS: LORazepam 1 MG TABLET PO SCH ×3 (08:50→16:49)
[2016-08-26] MEDS: CARVEDILOL 3.125 MG TABLET PO SCH (08:50)
[2016-08-26] MEDS: APIXABAN 2.5 MG TABLET PO SCH (08:50)
[2016-08-26] MEDS: FAMOTIDINE 20 MG TABLET PO SCH (08:50)
[2016-08-26] MEDS ORDERED: CHOLECALCIFEROL 1,000 UNIT CAPSULE PO SCH (09:00)
[2016-08-26] MEDS ORDERED: FLUTICASONE PROPIONATE 120 SPRAY INHALER NS SCH (09:00)
[2016-08-26] MEDS ORDERED: METOLAZONE 2.5 MG TABLET PO ONE (09:30)
[2016-08-26] MEDS ORDERED: NORMAL SALINE IV ONE (10:00)
[2016-08-26] MEDS ORDERED: FUROSEMIDE IV ONE (10:00)
[2016-08-26 15:18] LABS: Anion Gap 11.2 mmol/L (6.8-13.8); BUN/Creatinine Ratio 12.6 (9.0-21.6); Calcium * 10.1 mg/dL (7.9-10.9); Carbon Dioxide 30.5 mmol/L (24-32.6); Estimated Creat Clear 26.2; Potassium 3.7 mmol/L (3.4-4.6)
[2016-08-26 16:18] VITALS: BP 88/59
--- NOTE | 2016-08-26 16:51 | DS ---
(1) Acute on chronic diastolic heart failure Problem: Acute (2) Atrial fibrillation, chronic Diagnosis(s): S/P BiV PCM -03/2016 on Eliquis 5 mg PO BID. Problem: Chronic (3) COPD/ILD on 3-4 L O2 Diagnosis(s): Centrilobular emphysema on CT Problem: Chronic (4) CKD (chronic kidney disease) stage 3, GFR 30-59 ml/min Problem: Chronic (5) Cirrhosis of liver Diagnosis(s): with macrocytic anemia and decreased platelets. Problem: Chronic Qualifiers: Hepatic cirrhosis type: other cirrhosis Qualified Code(s): K74.69 - Other cirrhosis of liver Description of Stay: DATE OF ADMISSION: 08/25/2016. DATE OF DISCHARGE: 08/26/2016. HOSPITAL COURSE: Malorie Joseph is a 66-year-old WF with history of CAD[stent to RCA in 2008], chronic A. fib on Eliquis 5 mg PO BID, BiV PCM [03/2016], COPD/ILD on 2-4 L O2 who found to be significantly short of breath with weight gain in spite of doubling on her bumetanide from 2-4 mg for the last week when seen in office for a follow-up appointment. Patient diuresed well with metolazone, furosemide and spironolactone X 2 days. Her weight dropped from 70.4 kg on admission to 66.3 kg at the time of discharge. Electrolytes were monitored. Patient did not notice a marked difference in her dyspnea. Ipratropium IH was D/molly and change to DuoNeb TID IH. Will be adding metolazone /Zaroxolyn and spironolactone to bumetanide when discharged and electrolytes will be monitored. Patient will be seen in the office on 08/28/16 with ANA ROSA and have an echo as an outpatient prior to seeing Dr. Lugo on 09/02/16.[This was also discussed with Dr. Lugo.]. Other options were discussed with the patient including further invasive studies including [facility] etc. A total of 30 minutes was spent in this encounter of which more than 50% was spent [id number] with the patient and her discussing treatment options , test results and patient education. Greater than 30 minutes was spent on progress note, preparation and dictating discharge summary. Procedures Performed: none Results and Findings: Laboratory Tests 08/25/16 13:12 WBC 6.5 Hgb 14.3 Hct 42.6 MCV 107.8 H Plt Count 110 L 08/25/16 08/25/16 08/26/16 08/26/16 13:09 22:51 05:05 15:00 Sodium 137 140 134 134 Potassium 3.8 3.5 3.2 L 3.7 Chloride 101 100 98 96 Carb.dioxide 24.2 28.2 26.4 30.5 BUN 19 21 20 22 Creatinine 1.20 1.29 1.17 1.75 D Est GFR 48 L 44 L 49 L 31 L 08/25/16 08/25/16 13:00 22:00 Troponin I 0.066 B-Natriuretic Peptide 769 H 08/25/16 08/26/16 08/26/16 14:16 05:12 15:52 Weight 70.4 kg 67.676 kg 66.315 kg Discharge Disposition: Home self care Disposition: Home self-care Condition: Undetermined Discharge Activity: Activity as tolerated Discharge Diet: Low salt, Low fat/chol, High Fiber Referrals: Liliana Colindres MD [Primary Care Provider] - Additional Patient Instructions (free text): Appt with Dr. Gomez on 08/28/16 with BMP done prior to visit. Patient to keep appt. with Dr. Lugo on 09/02/2015.[ please confirm]. patient to start diuretics on 08/27/16. New medications: 1. Zaroxolyn/metolazone : which always has to be taken half hour before Bumex/ bumetanide for it to act inefficiently 2. Spironolactone: Which has to be taken with bumetanide 3. DuoNeb: Combination of ipratropium and albuterol solutions[instead of ipratropium alone]. Meds discontinued: Potassium. Ipatropium solution tid thro' nebulizer. Continue O2 at 2-4 L as before. Prescriptions (Any new or edited meds): Albuterol Sulfate/Ipratropium [Duoneb 2.5-0.5MG/3ML Soln] 3 ml IH QID #30 nebu Bumetanide [Bumex] 4 mg PO DAILY@1100 #60 tablet Metolazone [Zaroxolyn] 2.5 mg PO DAILY@1030 #30 tablet Spironolactone [Aldactone] 50 mg PO DAILY@1100 #30 tablet Complete Home Medications List: Complete Home Medication List: Levothyroxine Sodium [Synthroid] 50 mcg PO DAILY 09/06/13 Lorazepam 1 mg PO QID 09/06/13 Atorvastatin Calcium 20 mg PO HS 12/25/14 Cholecalciferol (Vitamin D3) [Vitamin D3] 2,000 unit PO DAILY #30 tablet Apixaban [Eliquis] 5 mg PO BID 03/01/16 Ipratropium/Albuterol Sulfate [Combivent Respimat Inhal [place]] 1 puff IH QID PRN 03/01/16 Multivitamin [One Daily Essential] 1 each PO DAILY 03/01/16 Fluticasone Propionate [Flonase Allergy Relief] 1 spray NS DAILY 07/23/16 Ranitidine HCl [Zantac] 150 mg PO BID 07/23/16 Acetaminophen [Tylenol] 325 mg PO Q4H PRN 07/29/16 Carvedilol [Coreg] 3.125 mg PO BID 08/25/16 Albuterol Sulfate/Ipratropium [Duoneb 2.5-0.5MG/3ML Soln] 3 ml IH QID #30 nebu 08/26/16 Bumetanide [Bumex] 4 mg PO DAILY@1100 #60 tablet 08/26/16 Metolazone [Zaroxolyn] 2.5 mg PO DAILY@1030 #30 tablet 08/26/16 Spironolactone [Aldactone] 50 mg PO DAILY@1100 #30 tablet 08/26/16 Amb Orders for Discharge: Basic Metabolic Panel Time Frame: 2 Days, Location: Determined By Patient US Echocardiogram 2D/M Mode * Time Frame: 5 Days, Location: Determined By Patient
== END 2016-08-26 19:30 | disposition home or self-care (01) ==
LOC: LAB 13:00 → MS 14:13
PROVIDERS: ADMIT Internal Medicine; ATTEND Internal Medicine
DX: I48.91 Unspecified atrial fibrillation (principal); I50.33 Acute on chronic diastolic (congestive) heart failure; J43.2 Centrilobular emphysema; E78.5 Hyperlipidemia, unspecified; Z87.891 Personal history of nicotine dependence; K74.60 Unspecified cirrhosis of liver; N18.3 Chronic kidney disease, stage 3 (moderate)
CPT/HCPCS: 36415; 80048; 83880; 84132; 84484; 85025; 85610; 94640; 96365; G0378

== ENCOUNTER 2016-08-29 14:56 | Emergency (ER) | payer MEDICARE, BC ==
--- NOTE | 2016-08-29 15:53 | ERNOTE ---
Neuro HPI ER Record Date of Service: 08/29/16 Presenting Symptoms: weakness, confusion Time Seen by Provider: 08/29/16 15:44 Source: family, RN notes reviewed, past records Exam Limitations: clinical condition Immunizations: IMMUNIZATION HX Immunizations Up to Date Yes History of Influenza Vaccine Yes Hx Pneumococcal Vaccination Yes Allergies/Adverse Reactions: Allergies Allergy/AdvReac Type Severity Reaction Status Date / Time nitrofurantoin Allergy Nausea Verified 07/29/16 15:08 macrocrystalline [From Macrodantin] Sulfa (Sulfonamide Allergy Verified 07/29/16 15:08 Antibiotics) amiodarone AdvReac Verified 07/29/16 15:08 lisinopril AdvReac Cough Verified 07/29/16 15:08 Home Medications: HOME MEDICATIONS Levothyroxine Sodium [Synthroid] 50 mcg PO DAILY 09/06/13 [Last Taken 08/25/16 09:00] Lorazepam 1 mg PO QID 09/06/13 [Last Taken 09/27/15] Atorvastatin Calcium 20 mg PO HS 12/25/14 [Last Taken 08/24/16 21:00] Cholecalciferol (Vitamin D3) [Vitamin D3] 2,000 unit PO DAILY #30 tablet [Last Taken 08/25/16 09:00] Apixaban [Eliquis] 5 mg PO BID 03/01/16 [Last Taken 08/25/16 09:00] Ipratropium/Albuterol Sulfate [Combivent Respimat Inhal [place]] 1 puff IH QID PRN 03/01/16 [Last Taken 08/25/16 09:00] Multivitamin [One Daily Essential] 1 each PO DAILY 03/01/16 [Last Taken 09:00] Fluticasone Propionate [Flonase Allergy Relief] 1 spray NS DAILY 07/23/16 [Last Taken 08/25/16 09:00] Ranitidine HCl [Zantac] 150 mg PO BID 07/23/16 [Last Taken 08/25/16 09:00] Acetaminophen [Tylenol] 325 mg PO Q4H PRN 07/29/16 [Last Taken Unknown] Carvedilol [Coreg] 3.125 mg PO BID 08/25/16 [Last Taken Unknown] Albuterol Sulfate/Ipratropium [Duoneb 2.5-0.5MG/3ML Soln] 3 ml IH QID #30 nebu 08/26/16 [Last Taken Unknown] Bumetanide [Bumex] 4 mg PO DAILY@1100 #60 tablet 08/26/16 [Last Taken Unknown] Metolazone [Zaroxolyn] 2.5 mg PO DAILY@1030 #30 tablet 08/26/16 [Last Taken Unknown] Spironolactone [Aldactone] 50 mg PO DAILY@1100 #30 tablet 08/26/16 [Last Taken Unknown] - History of Present Illness Narrative: Malorie is a 66 y/o female brought to the ED by her for altered mental status and weakness that have been worsening over the past 2 days. She was admitted to the hospital 4 days ago for right sided heart failure and fluid overload. She was diuresed and reportedly lost over 10 pounds. Her reports that she was very weak on discharge 2 days ago. She saw her PCP yesterday regarding the confusion. It was felt to be d/t dehydration and her diuretics were stopped. She has a history of cirrhosis, but a cause has never been determined as her liver function has been stable. 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 She is anticoagulated with Eloquis for atrial fibrillation that is controlled with a pacemaker. The patient's states that she has not eaten or drank today. She is lethargic and oriented to self only. She is normally fully alert and oriented, and independent with her ADL's. Onset: gradual onset, continues in ER - Character of Deficits Additional Deficits: Present: decrease ability to stand, decrease ability to walk, weakness Baseline Cognition: Present: poor alertness Baseline Gait: Present: walks w/o assistance Associated Symptoms: Reports: altered mental status, disoriented, confused, decreased responsiveness. Denies: fever/chills, sweating, chest pain, fainting , seizure, agitated, unresponsive Prior Treament: Reports: recently seen, treated by physician, recently hospitalized. Denies: similar symptoms before, currently on antibiotics Review of Systems - Review of Systems Constitutional: Present: recent illness, weakness, fatigue, malaise, decreased activity level. Absent: fever, chills EYE: Present: no symptoms reported ENT: Present: no symptoms reported Respiratory: Present: shortness of breath. Absent: cough, wheezing Cardiology: Absent: chest pain, edema Gastrointestinal/Abdominal: Present: eating less, drinking less. Absent: vomiting, diarrhea Genitourinary: Present: decreased urinary output Musculoskeletal: Present: no symptoms reported Skin: Present: no symptoms reported Neurological: Absent: headache, pre-existing deficit Endocrine: Present: no symptoms reported Hematologic/Lymphatic: Present: easy bruising, easy bleeding Psych: Present: no symptoms reported - Patient's Past Medical History Patient History - Medical: Hypothyroidism, Liver Disease - Cirrhosis - unknown etiology, Renal Disease - Stage 3 Patient History - Cardiac/Respiratory: Coronary Heart Disease, CHF, COPD, Hypertension, Myocardial Infarction, TIA, Home O2 Use, Other - Interstitial lung disease Patient History - Cancer: No Hx of Cancer Patient History - Surgical Procedures: Cataracts, Cardiac stent, Pacemaker, Tubal Ligation Patient History - Other: None LMP (females 10-50): Menopausal - Family History Mother Family History - Medical: Diabetes Type 1 Family History - Cardiac/Respiratory: Hypertension Father Family History - Medical: Anxiety Family History - Cardiac/Respiratory: Coronary Heart Disease Brother Family History - Medical: Family History - Cardiac/Respiratory: COPD - Social History Living Situations: home Abuse History: No History of abuse Psych History: Hx of Depression Does anyone smoke in the home?: No Smoking Status: Former smoker - 45 pack yrs Have you smoked in the past 12 months: No Alcohol Use: none Drug Use: none - Immunizations Immunizations Up to Date: Yes Hx Pneumococcal Vaccination: Yes History of Influenza Vaccine: Yes Physical Exam - Physical Exam General Appearance: Present: wd/wn, no apparent distress, lethargic - responds to some questions, not all, other - disheveled Eye Exam: PERRL: bilateral, EOMI: bilateral, Scleral icterus: bilateral Ears, Nose, Throat: Present: normal ENT inspection, hearing decreased, normal pharynx. Absent: abnormal TM (R), abnormal TM (L) Neck: Present: normal inspection, nontender, supple Respiratory: Present: no respiratory distress - on O2 3L/NC, no accessory muscle use, crackles - fine, bibasilar Cardiovascular/Chest: Present: regular rate, rhythm, no murmur, normal peripheral pulses Gastrointestinal/Abdominal: Present: nontender, nondistended, soft Extremity Exam: Present: normal inspection, non-tender, no edema Neurological Exam: Present: no motor/sensory deficits, disoriented to time, disoriented to situation, other - flat affect. Absent: disoriented to person, disoriented to place Skin Exam: Present: warm/dry, cool/dry, other - jaundice Sesser Coma Scale - Assess Eye Opening: To Voice Motor: Obeys Commands Verbal: Confused - Total Coma Scale Total: 13 ED Progress - Results and Orders Patient's Lab Results:: I have reviewed the patient's lab results. - Vital Signs Patient's Vital Signs:: I have reviewed the patient's vital signs. Vital Signs: Vital Signs 08/29/16 15:21 Temperature 36.2 C L Pulse Rate 79 Respiratory 16 Rate Blood Pressure 106/73 O2 Sat by Pulse 97 Oximetry - EKG EKG: unchanged from - 08/28/16, other - Paced rhythm - CT/Ultrasound CT/Ultrasound Narrative: Noncontrast head CT shows no acute intracranial process - Progress/Reassessment Chief Complaint: Altered Mental Status Plan - Plan Plan: Contacted by Dr. Colindres at 1650 - she was aware that the patient was in the ED because she had contacted the office and been told to come here. Dr. Colindres had already seen the patient's lab results and recommended transfer to [facility] d/t hepatic encephalopathy d/t cirrhosis that had previously not been an issue, as well as her severe right sided heart failure. Contacted [facility] for transfer at [address]. [address] Rojas for ER to ER transfer. [facility] here to take patient at 1910. Departure Clinical Impression: Acute hepatic encephalopathy Cirrhosis of liver Qualifiers: Hepatic cirrhosis type: unspecified hepatic cirrhosis Ascites presence: without ascites Qualified Code(s): K74.60 - Unspecified cirrhosis of liver CHF (congestive heart failure) Qualifiers: Congestive heart failure type: unspecified congestive heart failure type Congestive heart failure chronicity: unspecified congestive heart failure chronicity Qualified Code(s): I50.9 - Heart failure, unspecified Liver failure, acute Qualifiers: Hepatic coma status: without hepatic coma Qualified Code(s): K72.00 - Acute and subacute hepatic failure without coma - Departure Disposition: [facility] Condition: Stable Referrals: Liliana Colindres MD [Primary Care Provider] -
--- OUTSIDE RECORDS SUMMARY | 2016-08-29 16:05 | XMS REPORT | Continuity of Care Document ---
:1950 Author Organization [facility] ([facility]) Address [address] [place] [place] [address] Phone [phone] Care Team Providers Name Role Phone Liliana Colindres Primary Care Provider [phone] Source Comments This disclosure is being made pursuant to the Care Everywhere program, applicable federal and state laws, and may not contain all informaitonavailable regarding this patient.[facility] ([facility]) Active Allergies and Adverse Reactions Allergen Noted Date Severity Reactions Comments Amiodarone 01/01/2016 OTHER "gave me the pulmonary disease" Ciprofloxacin 08/02/2015 Nausea & Vomiting Nitrofurantoin 05/22/2015 Unknown Macrocrystalline Sulfa (Sulfonamide 05/22/2015 Unknown Antibiotics) Sulfa (Sulfonamide 09/25/2015 Unknown Pt reported she has Antibiotics) never had sulfa but her mother reported she was allergic to it and her daughter gets anaphylaxis from it as well Current Medications Prescription Sig. Disp. Refills Start Date End Date Status carvedilol 3.125 mg Take 1 tablet 180 tablet 4 05/22/2015 Active tablet (3.125 mg total) by mouth 2 times daily potassium chloride 20 Take 20 mEq by Active mEq tablet mouth 2 times daily. LORazepam 1 mg tablet Take 1 mg by Active mouth every 6 hours as needed. albuterol-ipratropium Use 3 mL by Active 2.5-0.5 mg/3 mL inhalation 4 inhalation solution times daily. ranitidine 150 mg Take 1 tablet 60 tablet 11 06/04/2016 Active tablet (150 mg total) by mouth 2 times daily. aspirin 81 mg EC Take 81 mg by Active tablet mouth daily. cholecalciferol Take 2,000 Units Active (VITAMIN D3) 2,000 by mouth daily. unit tablet acetaminophen 325 mg Take 325 mg by Active tablet mouth every 4 hours. apixaban (ELIQUIS) 5 Take 5 mg by Active mg tablet mouth 2 times daily. ipratropium-albuterol Use 1 Puff by Active (COMBIVENT RESPIMAT) inhalation 4 20-100 mcg/actuation times daily. inhaler fluticasone 50 Use 1 Hope into Active mcg/Actuation nasal both nostrils spray daily. atorvastatin 20 mg Take 20 mg by Active tablet mouth daily. bumetanide 2 mg tablet Take 2 mg by Active mouth daily. levothyroxine 50 mcg Take 50 mcg by Active tablet mouth every morning before breakfast. spironolactone 25 mg Take 1 tablet (25 30 tablet 2 03/10/2016 Active tablet mg total) by mouth daily. Active Problems Patient Care Coordination Note GOALS OF CARE AND TREATMENT PREFERENCES Diagnosis: Acute of chronic hypoxic respiratory failure Prognosis: Fair Goal(s) of Care: comfort and relief of symptoms and determine what is wrong Is the patient an inpatient? Yes. How did the team arrive at the current code status? Spoke with patient. Code status is: Full code Most important goal of care: "Breathe better" Additional remarks: None Patient able to make own decisions?: Yes Problem Noted Date Cardiac pacemaker in situ-SJM device 03/20/2016 Overview: Pt is s/p AV node ablation for afib and MAT. She has an SJM Allure Quadr BIV pacer implanted By Dr. Oro on 03/20/16. Implant report is scanned under the media for details. Emphysema lung 03/03/2016 Interstitial lung disease 03/02/2016 COPD (chronic obstructive pulmonary disease) 03/02/2016 Macrocytic anemia 03/02/2016 Epigastric abdominal pain 03/02/2016 Atrial flutter 02/10/2016 Exercise intolerance 12/09/2015 Non-rheumatic mitral regurgitation 12/04/2015 Shortness of breath 12/03/2015 CAD in [place] artery 10/01/2015 Dyspnea on exertion 08/02/2015 Myocardial infarction, old Overview: PVD (peripheral vascular disease) with claudication Overview: Formatting of this note may be different from the original. 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 CARDIOVASCULAR PROCEDURES ANIMATION CAMERA OPERATOR: Cath (EF.35, 100% Proximal RCA, Right Dominant, Successful stent deployment to the RCA. Probable hypertrophic CM) - 11/12/2008 ECHO/MUGA: Echo (1. Asymmetric septal hypertrophy without LAMAR. Septal thickness roughly 2.2 cm 2. Inferior and lateral hypokinesis; global EF > 65% 3. Unable to rule out a bicuspid AoV 4. Mild to moderate MR 5. Technically difficult study... RA and RV difficult to visualize well.) - Echo (Left ventricular systolic function is normal. There is mild asymmetric left ventricular hypertrophy. There is moderate mitral regurgitation. There is aortic valve sclerosis without stenosis. ) - 01/23/2010 ELECTROPHYSIOLOGY: DCCV (Initial Rhythm A Fib, Final Rhythm Sinus, Max Joules 150, 1 Shock) - 09/07 STRESS TESTS: MPI (EF.59, Normal LV size, systolic function, and wall motion--EF 63%. Small fixed lateral wall defect consistent with prior lateral infarction. No ischemia.) - 01/05/2012 VASCULAR: Arterial Duplex UE (Normal study.) - 11/30/2008 Carotid Duplex (Mild Disease in Bilateral ICAs, Vertebral: Bilateral Antegrade Flow) - 03/02/2012 Myocardial infarction, old PVD (peripheral vascular disease) Chronic atrial fibrillation Overview: cardioversion Hyperlipidemia Coronary artery disease Overview: Formatting of this note may be different from the original. CARDIOVASCULAR PROCEDURES ANIMATION CAMERA OPERATOR: Cath (EF.35, 100% Proximal RCA, Right Dominant, Successful stent deployment to the RCA. Probable hypertrophic CM) - 11/12/2008 ECHO/MUGA: Echo (1. Asymmetric septal hypertrophy without LAMAR. Septal thickness roughly 2.2 cm 2. Inferior and lateral hypokinesis; global EF > 65% 3. Unable to rule out a bicuspid AoV 4. Mild to moderate MR 5. Technically difficult study... RA and RV difficult to visualize well.) - Echo (Left ventricular systolic function is normal. There is mild asymmetric left ventricular hypertrophy. The left atrium is mildly dilated. The right atrium is mildly dilated. There is moderate mitral regurgitation. There is mild tricuspid regurgitation. There is aortic valve sclerosis without stenosis. Trace pulmonic valvular regurgitation. ) - 01/23/2010 ELECTROPHYSIOLOGY: DCCV (Initial Rhythm A Fib, Final Rhythm Sinus, Max Joules 150, 1 Shock) - 09/07 STRESS TESTS: MPI (EF.59, Normal LV size, systolic function, and wall motion--EF 63%. Small fixed lateral wall defect consistent with prior lateral infarction. No ischemia.) - 01/05/2012 VASCULAR: Arterial Duplex UE (Normal study.) - 11/30/2008 Carotid Duplex (Mild Disease in Bilateral ICAs, Vertebral: Bilateral Antegrade Flow) - 03/02/2012 Resolved Problems Problem Noted Date Resolved Date Acute on chronic respiratory failure with hypoxia 03/03/2016 03/10/2016 Acute on chronic diastolic heart failure 03/03/2016 03/10/2016 BEBO (acute kidney injury) 03/02/2016 03/10/2016 Elevated troponin 03/02/2016 03/10/2016 Hypotension arterial 12/04/2015 12/12/2015 Acute respiratory failure with hypoxia 12/04/2015 12/12/2015 Weight gain 12/03/2015 12/12/2015 Chronic respiratory failure with hypoxia 10/01/2015 03/10/2016 Paroxysmal atrial fibrillation 10/01/2015 04/06/2016 Paroxysmal atrial fibrillation 06/03/2016 Tobacco abuse 12/12/2015 Most Recent Encounters Date Type Specialty Providers Description 07/01/2016 Office Visit Heart and Vascular Clarisse Lugo, Dx: Dyspnea and MD respiratory abnormalities (Primary Dx) 06/05/2016 Telephone Med Pulmonary Lesvia Mg, Chief Comp: Other PLASTIC EXTRUSION OPERATOR 06/04/2016 Office Visit Med Pulmonary Asha Michaud, Dx: ILD (interstitial lung disease) (Primary Dx) 06/04/2016 Hospital Respiratory Therapy Default, Other Dx: SOB (shortness Encounter Billg - Defo of breath) Mary Ann Fonseca MD 06/04/2016 Hospital Heart and Vascular Default, Other Dx: (HFpEF) heart Encounter Billg - Defo failure with Winston Ya, preserved ejection MD fraction 06/04/2016 Hospital Rehabilitation Therapist, Rehab Dx: COPD (chronic Encounter obstructive pulmonary disease) (Primary Dx) 06/03/2016 Office Visit Heart and Vascular Terrie Luis, Dx: Cardiac PLASTIC EXTRUSION OPERATOR pacemaker in situ-SJM device (Primary Dx) Immunizations Name Dates Previously Given Next Due Influenza, high dose 05/09/2016 Pneumococcal Polysaccharide, PPSV23 (Pneumovax 23) 05/09/2016 Social History Tobacco Use Types Packs/Day Years Used Date Former Smoker Cigarettes 1 30 Quit: 02/18/2009 Smokeless Tobacco: Never Used Comments: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 Alcohol Use Drinks/Week oz/Week Comments No 0 Standard drinks or equivalent 0.0 Last Filed Vital Signs Vital Sign Reading Time Taken Blood Pressure 98/48 07/01/2016 10:29 AM HAND TRUCKER Pulse 63 07/01/2016 10:29 AM HAND TRUCKER Temperature 35.4 C (95.7 F) 07/01/2016 10:29 AM HAND TRUCKER Respiratory Rate 20 07/01/2016 10:29 AM HAND TRUCKER Height 1.61 m (5' 3.39") 06/04/2016 3:22 PM HAND TRUCKER Weight 70.126 kg (154 lb 9.6 oz) 07/01/2016 10:29 AM HAND TRUCKER Body Mass Index 27.05 07/01/2016 10:29 AM HAND TRUCKER Oxygen Saturation 92% 07/01/2016 10:29 AM HAND TRUCKER Plan of Care Date Type Specialty Providers Description 09/02/2016 Appointment Heart and Vascular Clarisse Lugo MD Subj: Upcoming Appt [address] [place] [phone] (Fax) 10/01/2016 Appointment Radiology Chief Comp: Patient Reported Reason For Visit 10/01/2016 Appointment Respiratory Therapy Default, Other Billg Chief Comp : Patient - Defo Reported Reason For [address] [place] [address] [phone] (Fax) 10/01/2016 Appointment Med Pulmonary Default, Other Billg - Defo [address] [place] [address] [phone] (Fax) Chief Comp: Patient Lesvia Mg ARNP [address] [place] [address] [phone] (Fax) Reported Reason For Visit 01/06/2017 Appointment Heart and Vascular Terrie Luis ARNP Chief Comp: Patient [address] [place] [address] Visit [phone] (Fax) Health Maintenance Due Date Last Done Comments Hepatitis B Vaccine (1 of 3 - Primary Series) 1950 Tdap Vaccine 1961 Lipid Disorder Screening 1968 Td Vaccine 1968 Mammogram 1990 Colonoscopy 05/24/2000 Zoster Vaccine 2010 Osteoporosis Screening (DXA Bone Density) 2015 Pneumococcal Vaccine (2 of 2 - PCV13) 05/09/2017 05/09/2016 HCV Screening Completed 10/09/2015 Influenza Vaccine: Seasonal Completed 05/09/2016 Results from Last 3 Months PULMONARY FUNCTION TEST (PFT) (06/04/2016 2:21 PM) Component Value Range FVC Predicted 3.05 0.05-9.99 Liters FVC 2.99 0 - 12 Liters FVC %Predicted 98 0-300 % FEV1 Predicted 2.33 0.05-9.99 Liters FEV1 1.98 0 - 12 Liters FEV1% Predicted 85 0-300 % FEV1/FVC Predicted 77 1-99 % FEV1/FVC 66 0 - 12 % FEF 25-75% Predicted 2.05 0-12 L/sec FEF 25-75% 1.03 0-12 L/sec FEF 25-75% %Pre Predicted 50 0-300 % PEF Predicted 5.84 0-18 L/sec PEF Pre BD 6.26 0-18 L/sec PEF % Pre Predicted 107 0-300 % PIF PRE BD 3.70 0-18 L/sec FEV6 PRE 2.84 0 - 12 Liters MVV Predicted 93 0-300 L/min VC PREDICTED 3.05 0.05-9.99 Liters TLC Predicted 4.73 0.05-11.99 Liters RV Predicted 1.85 0.05-9.99 Liters RV/TLC Predicted 39 0-300 % FRC PL Predicted 2.68 0.05-9.99 Liters DLCO Predicted 20.7 0.05-99.99 mL/mmHg/min DLCO 4.7 mL/mmHg/min DLCO % Predicted 23 0-300 % DLCO ADJ Predicted 20.7 1-2 mL/mmHg/min DLCO Adj 4.7 1-2 mL/mmHg/min DLCO Adj % Predicted 23 0-300 % VA PRE BD 3.91 Liters PI MAX Predicted 70 cmH2O ECHO ADULT - ECHOCARDIOGRAM, TRANSTHORACIC (06/04/2016 1:44 PM) Component Value Range Interpretation Summary TRANSTHORACIC ECHOCARDIOGRAM Normal left ventricular size. Mild left ventricular hypertrophy. Normal left ventricular systolic function. Mild mitral regurgitation by Doppler. Trace Tricuspid regurgitation RV/RA peak instantaneous systolic gradient=42mmHg. Pulmonary artery pressure may be predicted by adding an estimate of central pressure or RA pressure to the RV/RA gradient. Patient Height (cm) 160 cm Patient Weight (kg) 68.5 kg Systolic Pressure (mmHg) 92 mmHg Diastolic Pressure (mmHg) 64 mmHg BSA (meters^2) 1.7 m^2 Left Ventricle (LV) Normal left ventricular size. Mild left ventricular hypertrophy. Normal left ventricular systolic function. LV Ejection Fraction=52% (based on Biplane Method of Discs). Right Ventricle (RV) Normal right ventricular size. There is a catheter in the right ventricle. Right ventricular function cannot be assessed due to poor image quality. Left and Right Atria (LA, RA) LA chamber size: enlarged. LA ESV index=47 ml/m2. Enlarged right atrial size. Mitral Valve (MV) Normal mitral valve leaflet morphology Mild mitral regurgitation by Doppler. Tricuspid Valve (TV) Normal tricuspid valve morphology Trace Tricuspid regurgitation RV/RA peak instantaneous systolic gradient=42mmHg. Pulmonary artery pressure may be predicted by adding an estimate of central pressure or RA pressure to the RV/RA gradient. Aortic Valve (AoV) Mildly calcified aortic valve leaflets Trileaflet Aortic valve Pulmonic Valve (PV) Pulmonic valve is not visualized Mild pulmonic valve insufficiency by doppler. Aorta and Pulmonary Artery (Ao, PA) The aortic root is normal size. Pericardium/Pleura There is no pericardial effusion. Procedures Complete 2D with Doppler, Color Flow and image documentation ( [id number]) I personally viewed the echocardiogram and approve the above interpretation Inf. Vena Cava (IVC) / Pulm. Veins A normal IVC diameter which collapses greater than 50% would support an normal RA pressure of 3 mmHg (range 0-5mmHg). Primary ICD-9 Code Shortness of breath (786.05) IVSd 0.97 cm LVIDd 4.1 cm LVIDs 2.8 cm LVPWd 1.2 cm IVS/LVPW 0.83 Ao root diam 2.1 cm Ao root area 3.6 cm^2 LA dimension 4.6 cm LA/Ao 2.1 LVAd ap4 20.9 cm^2 EF(MOD-sp4) 51.2 % MV E max carlos 74.7 cm/sec MV dec time 0.37 sec MR max carlos 443.9 cm/sec MR max PG 78.8 mmHg TR Max carlos 324.9 cm/sec Low Range of LVEF 52 High Range of LVEF 52 Reason For Study Reassess PASP Sports Recruiter Poonam Parks Interpreting Physician Winston Ya MD electronically signed on 2016-06-04 13:58:29.07
[2016-08-29 16:23] LABS: Hematocrit 45.5 % (37.0-47.0); Hemoglobin 15.7 gm/dL (12.5-16.0); Mean Cell Volume 102.7 fl (78-100); Mean Corpuscular Hemoglobin 35.4 pg (27-31); Mean Corpuscular Hgb Conc 34.5 g/dl (32-36); Mean Platelet Volume 9.6 fl (6.0-9.5); Neutrophil # 4.4 K/mm3 (1.3-6.0); Neutrophil % 71.6 % (42-75.0); Platelet Count 121 K/mm3 (150-450); Red Blood Count 4.43 M/mm3 (4.2-5.4); Red Cell Distribution Width 20.2 % (11.5-14.0); White Blood Count 6.1 K/mm3 (4.0-10.5)
[2016-08-29 16:41] LABS: Albumin * 2.9 gm/dl (3.4-5.0); Anion Gap 13.4 mmol/L (6.8-13.8); Bilirubin, Total 4.4 mg/dL (0.0-1.1); Ca. Corrected For Albumin 10.7 mg/dL (8.4-10.2); Calcium * 10.1 mg/dL (7.9-10.9); Carbon Dioxide 29.2 mmol/L (24-32.6); Potassium 3.6 mmol/L (3.4-4.6)
[2016-08-29] MEDS ORDERED: NORMAL SALINE 1,000 ML IV ONE (16:48)
[2016-08-29 17:08] LABS: Prothrombin Time (Patient) 13.4 Seconds (9.4-11.4)
[2016-08-29 17:09] LABS: INR 1.29 INR (0.90-1.10); Partial Thrombolplastin Time 41.4 Seconds (24-32)
[2016-08-29] MEDS ORDERED: LACTULOSE 10 G/15 ML BTL PO ONE (17:30)
[2016-08-29 18:46] VITALS: BP 131/82
== END 2016-08-29 19:23 | disposition short-term general hospital (02) ==
LOC: ER 14:56
DX: K72.00 Acute and subacute hepatic failure without coma (principal); K74.60 Unspecified cirrhosis of liver; I50.9 Heart failure, unspecified; Z87.891 Personal history of nicotine dependence

== ENCOUNTER 2016-09-20 13:05 | Observation (INO) | payer MEDICARE, BC ==
[2016-09-20] MEDS ORDERED: MORPHINE SULFATE 2 MG/ML DISP.SYRIN IV ONE (13:31)
[2016-09-20] MEDS ORDERED: ONDANSETRON HCL/PF 2 MG/ML VIAL IV ONE ×2 (13:32→16:31)
--- NOTE | 2016-09-20 13:34 | ERNOTE ---
Back Pain ER HPI Date of Service: 09/20/16 Presenting Symptoms: injury/pain to back Time Seen by Provider: 09/20/16 13:20 Source: patient, family, past records Exam Limitations: no limitations Immunizations: IMMUNIZATION HX Immunizations Up to Date Yes History of Influenza Vaccine Yes Hx Pneumococcal Vaccination Yes Allergies/Adverse Reactions: Allergies nitrofurantoin macrocrystalline [From Macrodantin] Allergy (Verified 09/20/16 13 :15) Nausea Sulfa (Sulfonamide Antibiotics) Allergy (Verified 09/20/16 13:15) amiodarone Adverse Reaction (Verified 09/20/16 13:15) lisinopril Adverse Reaction (Verified 09/20/16 13:15) Cough Home Medications: HOME MEDICATIONS Levothyroxine Sodium [Synthroid] 50 mcg PO DAILY 09/06/13 [Last Taken 08/25/16 09:00] Lorazepam 1 mg PO QID 09/06/13 [Last Taken 09/27/15] Atorvastatin Calcium 20 mg PO HS 12/25/14 [Last Taken 08/24/16 21:00] Cholecalciferol (Vitamin D3) [Vitamin D3] 2,000 unit PO DAILY #30 tablet [Last Taken 08/25/16 09:00] Apixaban [Eliquis] 5 mg PO BID 03/01/16 [Last Taken 08/25/16 09:00] Ipratropium/Albuterol Sulfate [Combivent Respimat Inhal [place]] 1 puff IH QID PRN 03/01/16 [Last Taken 08/25/16 09:00] Multivitamin [One Daily Essential] 1 each PO DAILY 03/01/16 [Last Taken 09:00] Fluticasone Propionate [Flonase Allergy Relief] 1 spray NS DAILY 07/23/16 [Last Taken 08/25/16 09:00] Ranitidine HCl [Zantac] 150 mg PO BID 07/23/16 [Last Taken 08/25/16 09:00] Acetaminophen [Tylenol] 325 mg PO Q4H PRN 07/29/16 [Last Taken Unknown] Carvedilol [Coreg] 3.125 mg PO BID 08/25/16 [Last Taken Unknown] Albuterol Sulfate/Ipratropium [Duoneb 2.5-0.5MG/3ML Soln] 3 ml IH QID #30 nebu 08/26/16 [Last Taken Unknown] Bumetanide [Bumex] 4 mg PO DAILY@1100 #60 tablet 08/26/16 [Last Taken Unknown] Metolazone [Zaroxolyn] 2.5 mg PO DAILY@1030 #30 tablet 08/26/16 [Last Taken Unknown] Spironolactone [Aldactone] 50 mg PO DAILY@1100 #30 tablet 08/26/16 [Last Taken Unknown] Narrative: 66 y/o female brought to the ED by her for left flank region pain that began today. She has taken Tramadol without any improvement. She was seen at [facility] yesterday. Adjustments were made in her diuretics. She is taking lactulose for hepatic failure. She reports having a soft stool this morning. Her family is concerned that she does not seem to be urinating much despite the increase in her diuretics. Her reports that she has recently had a 10 pound weight gain. Date (Duration): 09/20/16 Location of pain: Reports: mid back - left, other - radiating to left abdomen Activities at Onset: Reports: none Recent Injury?: Reports: no Associated Symptoms: Denies: fever/chills, constipation/incontinence, nausea/ vomiting, problems urinating Prior Treament: Reports: recently seen, treated by physician Review of Systems - Review of Systems Constitutional: Present: recent illness, fatigue, decreased activity level EYE: Present: no symptoms reported ENT: Present: no symptoms reported Respiratory: Present: shortness of breath, cough. Absent: wheezing Cardiology: Present: edema. Absent: chest pain Gastrointestinal/Abdominal: Present: See HPI Genitourinary: Present: decreased urinary output. Absent: dysuria, hematuria Musculoskeletal: Present: back pain. Absent: muscle stiffness, neck pain, joint pain Skin: Absent: lesions, lumps Neurological: Absent: headache, dizziness/light-headedness Endocrine: Present: no symptoms reported Hematologic/Lymphatic: Present: no symptoms reported Psych: Present: no symptoms reported - Patient's Past Medical History Patient History - Medical: Hypothyroidism, Liver Disease, Renal Disease Patient History - Cardiac/Respiratory: Coronary Heart Disease, CHF, COPD, Hypertension, Myocardial Infarction, TIA, Home O2 Use, Other - Interstitial lung disease Patient History - Cancer: No Hx of Cancer Patient History - Surgical Procedures: Cataracts, Cardiac stent, Pacemaker, Tubal Ligation Patient History - Other: None - Family History Mother Family History - Medical: Diabetes Type 1 Family History - Cardiac/Respiratory: Hypertension Father Family History - Medical: Anxiety Family History - Cardiac/Respiratory: Coronary Heart Disease Brother Family History - Medical: Family History - Cardiac/Respiratory: COPD - Social History Living Situations: spouse Abuse History: No History of abuse Psych History: Hx of Depression Does anyone smoke in the home?: No Smoking Status: Former smoker Alcohol Use: none Drug Use: none - Immunizations Immunizations Up to Date: Yes Hx Pneumococcal Vaccination: Yes History of Influenza Vaccine: Yes Physical Exam - Physical Exam General Appearance: Present: wd/wn, alert, mild distress Ears, Nose, Throat: Present: normal except -, hearing decreased Neck: Present: normal inspection, nontender, supple Respiratory: Present: no respiratory distress, lungs clear, accessory muscle use , decreased breath sounds - bilateral bases Cardiovascular/Chest: Present: no murmur, normal peripheral pulses, irregularly irregular Gastrointestinal/Abdominal: Present: normal bowel sounds, soft, tenderness - left upper quad, distended Back Exam: Present: no vertebral tenderness, CVA tenderness (L). Absent: CVA tenderness (R) Extremity Exam: Present: non-tender, normal range of motion, pedal edema - bilaterally 3+ to both feet Neurological Exam: Present: alert, oriented, normal mood/affect Skin Exam: Present: warm/dry, jaundice ED Progress - Results and Orders Patient's Lab Results:: I have reviewed the patient's lab results. - Vital Signs Patient's Vital Signs:: I have reviewed the patient's vital signs. Vital Signs: Vital Signs 09/20/16 13:11 Temperature 36.4 C L Pulse Rate 112 H Respiratory 18 Rate Blood Pressure 101/69 O2 Sat by Pulse 91 Oximetry - X-Ray X-Ray #1 X-Ray: chest Interpretation: Reviewed by me X-ray Comments: No acute cardiopulmonary process noted X-Ray #2 X-Ray: abdomen Interpretation: Reviewed by me X-ray Comments: Nonobstructive bowel gas pattern with mild to moderate fecal retention. - Progress/Reassessment Chief Complaint: Back Pain Progress Note-Subjective: 09/20/16 14:50 Patient was feeling better after Morphine 2 mg IVP, labwork stable, was going to d/c to home but began having more pain. Additional Morphine ordered as well as CXR and abdominal xrays. 09/20/16 16:06 Stool retention noted on xray may be causing some of the pain, will attempt enema here as giving oral laxatives could cause diarrhea and worsen her renal function and electrolyte problems. 09/20/16 17:17 Large emesis - Zofran given with improvement in nausea Soap suds enema given - small amount of soft stool passed Back/abdominal pain improved with additional Morphine but not resolved Dr. Colindres contacted, will admit to observation status Departure Clinical Impression: CHF (congestive heart failure) Qualifiers: Congestive heart failure type: unspecified congestive heart failure type Congestive heart failure chronicity: acute on chronic Qualified Code(s): I50.9 - Heart failure, unspecified Abdominal pain Qualifiers: Abdominal location: left upper quadrant Qualified Code(s): R10.12 - Left upper quadrant pain - Departure Disposition: [facility] Condition: Stable
--- OUTSIDE RECORDS SUMMARY | 2016-09-20 13:47 | XMS REPORT | Continuity of Care Document ---
:1950 Author Organization [facility] ([facility]) Address [address] [place] [address] Phone [phone] Care Team Providers Name Role Phone Liliana Colindres Primary Care Provider [phone] Source Comments This disclosure is being made pursuant to the Care Everywhere program, applicable federal and state laws, and may not contain all informaitonavailable regarding this patient.[facility] ([facility]) Active Allergies and Adverse Reactions Allergen [...] mg total) by mouth 2 times daily albuterol-ipratropiu Use 3 mL by Active m 2.5-0.5 mg/3 mL inhalation 4 inhalation solution times daily. ranitidine 150 mg Take 1 tablet 60 tablet 11 06/04/2016 Active tablet (150 mg total) by mouth 2 times daily. cholecalciferol Take 2,000 Active (VITAMIN D3) 2,000 Units by mouth unit tablet daily. acetaminophen 325 mg Take 325 mg by Active tablet mouth every 4 hours as needed. apixaban (ELIQUIS) 5 Take 5 mg by Active mg tablet mouth 2 times daily. levothyroxine 50 mcg Take 50 mcg by Active tablet mouth every morning before breakfast. umeclidinium Use 1 Puff by Active (INCRUSE ELLIPTA) inhalation 62.5 mcg/actuation daily. inhaler potassium chloride Take 3 tablets 90 tablet 11 09/02/2016 Active 10 mEq XR tablet (30 mEq total) by mouth daily. lactulose 20 gram/30 TAKE 30 ML BY 3 09/04/2016 Active mL solution UD cup MOUTH TWICE DAILY NEEDED traMADol 50 mg Take 50 mg by 0 09/09/2016 Active tablet mouth 2 times daily as needed. atorvastatin 20 mg Take 20 mg by Active tablet mouth every evening. bumetanide 2 mg Take 2 mg by Active tablet mouth daily. ipratropium Use 2 Puffs by Active (ATROVENT HFA) 17 inhalation 4 mcg/Actuation times daily. inhaler spironolactone 25 mg Take 25 mg by Active tablet mouth daily. LORazepam 1 mg Take 1 mg by Active tablet mouth every 6 hours as needed. rifAXIMin (XIFAXAN) Take 1 tablet 60 tablet 3 09/16/2016 01/15/20 Active 550 mg tablet (550 mg total) 17 by mouth 2 times daily. potassium chloride Take 30 mEq by 09/02/19 Discontinued 20 mEq tablet mouth 2 times 17 daily. LORazepam 1 mg Take 1 mg by 08/30/19 Discontinued tablet mouth every 6 17 hours as needed. aspirin 81 mg EC Take 81 mg by 09/02/19 Discontinued tablet mouth daily. 17 ipratropium-albutero Use 1 Puff by 08/30/19 Discontinued l (COMBIVENT inhalation 4 17 RESPIMAT) 20-100 times daily. mcg/actuation inhaler fluticasone 50 Use 1 [place] 08/30/19 Discontinued mcg/Actuation nasal into both 17 spray nostrils daily. atorvastatin 20 mg Take 20 mg by 08/30/19 Discontinued tablet mouth daily. 17 bumetanide 2 mg Take 2 mg by 09/02/19 Discontinued tablet mouth daily. 17 spironolactone 25 mg Take 1 tablet 30 tablet 2 03/10/2016 09/02/19 Discontinued tablet (25 mg total) 17 by mouth daily. metOLazone 2.5 mg TAKE ONE TABLET 0 08/26/2016 09/02/19 Discontinued tablet BY MOUTH AT 17 1030AM Active Problems Patient Care Coordination Note GOALS [...] make own decisions?: Yes Problem Noted Date Hypokalemia 08/31/2016 Last Assessment & Plan: - Likely from GI loss - Replace today. - Follow BMP on 09/02/16 as outpatient. Heart failure with preserved ejection fraction 08/30/2016 Last Assessment & Plan: - Currently euvolemic - Cont home meds - Monitor evidence of edema Portal hypertension 08/29/2016 Last Assessment & Plan: - Etiology unclear - Evidence of portal hypertension in CT back in May 2016 - Negative for viral hepatitis - Consult liver service for further recommendation on evaluation. Will need to be seen as an outpatient Pulmonary HTN 08/29/2016 Chronic hypoxemic respiratory failure 08/29/2016 Last Assessment & Plan: - Due to a combination of ILD, pulmonary HTN, and emphysema. - On chronic O2 - Currently at baseline, but seems to be worsens since last May - Appreciate pulm consult's recommendations - CXR with no new pathology noted Cardiac pacemaker in situ-SJM device 03/20/2016 Overview: [...] 12/04/2015 Shortness of breath 12/03/2015 CAD in [place]grath artery 10/01/2015 Last Assessment & Plan: - Inferior wall [place] in 2008 - S/p multiple stents 2008 - No evidence of ACS - Cont low dose ASA, statin, Coreg, Myocardial infarction, old Overview: PVD (peripheral vascular disease) with claudication Overview: Formatting of this note may be different from the original. 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 Hyperlipidemia Resolved Problems Problem Noted Date Resolved Date Acute encephalopathy 08/29/2016 08/31/2016 Last Assessment & Plan: - Suspect to be due to hepatic encephalopathy. No evidence of infection at this time. - Continues to improve - Cont lactulose 30 g TID, to titrate to 3 BM/daily Acute on chronic respiratory failure with hypoxia [...] Recent Encounters Date Type Specialty Providers Description 09/19/2016 Telephone Med GI/Hepatology Apurva Aly, Chief Comp: Need Prior RN Authorization 09/17/2016 Telephone Med GI/Hepatology Omid Stern Chief Comp: Other 09/16/2016 Office Visit Med GI/Hepatology Genie, Dx: Other cirrhosis of MD [place] liver 09/16/2016 Telephone Med GI/Hepatology Omid Stern Chief Comp: Need Prior Authorization 09/03/2016 Nurse Triage General Care Nica Dueñas RN Chief Comp: IP Inpatient - Adult Discharge Follow-up Call 09/02/2016 Office Visit Clarisse Salazar Dx: Hypokalemia Vascular (Primary Dx) 08/29/2016 - Hospital General Care Fabio Jade Dx: Acute 08/31/2016 Encounter Inpatient - Adult D, MD encephalopathy Jez Diez MD (Primary Dx) Manav Chaves MD 07/01/2016 Office Visit Clarisse Salazar Dx: Dyspnea and Vascular respiratory abnormalities (Primary Dx) Immunizations Name Dates Previously Given Next Due Influenza, high dose 05/09/2016 Pneumococcal Polysaccharide, PPSV23 (Pneumovax 23) 05/09/2016 Social History Tobacco Use Types Packs/Day Years Used Date Former Smoker Cigarettes 1 30 Quit: 02/18/2009 Smokeless Tobacco: Never 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 Alcohol Use Drinks/Week oz/Week Comments No 0 Standard drinks or equivalent 0.0 Last Filed Vital Signs Vital Sign Reading Time Taken Blood Pressure 95/74 09/16/2016 9:55 AM [facility] Pulse 94 09/16/2016 9:55 AM [facility] Temperature 35.8 C (96.4 F) 09/16/2016 9:55 AM [facility] Respiratory Rate 18 09/02/2016 10:47 AM [facility] Height 1.6 m (5' 2.99") 09/16/2016 9:55 AM [facility] Weight 72.9 kg (160 lb 11.5 oz) 09/16/2016 9:55 AM [facility] Body Mass Index 28.48 09/16/2016 9:55 AM [facility] Oxygen Saturation 98% 09/02/2016 10:47 AM [facility] Plan of Care Date Type Specialty Providers Description 10/01/2016 Appointment Radiology Chief Comp: Patient Reported Reason For Visit 10/01/2016 Appointment Respiratory Therapy Default, Other Billg Chief Comp : Patient - Defo Reported Reason For [address] [place] [place] [address] [phone] (Fax) 10/01/2016 Appointment Med Pulmonary Default, Other Billg - Defo [address] [place] [address] [phone] (Fax) Chief Comp: Patient Lesvia Mg ARNP [address] [place] [address] [phone] (Fax) Reported Reason For Visit 10/28/2016 Appointment Heart and Vascular Clarisse Lugo MD Subj: Appointment [address] [place] [address] [phone] (Fax) 12/01/2016 Appointment Med GI/Hepatology [place], Subj: Appointment Scheduled [address] [place] [address] [phone] (Fax) 01/06/2017 Appointment Heart and Vascular Terrie Luis ARNP Chief Comp: Patient [address] [place] [address] Visit [phone] (Fax) Health Maintenance Due Date Last Done [...] Completed 05/09/2016 Results from Last 3 Months ANTI-NUCLEAR ANTIBODY SCREEN (09/16/2016 11:49 AM) Component Value Range SON Screen <1:80 <1:40, <1:80 Specimen Blood ANTI-NEUTROPHIL CYTOPLASMIC(ANCA) TITER (09/16/2016 11:49 AM) Component Value Range ANCA Titer 1:2560(A) (none) ANCA Titer Interp COMMENT: Anti-neutrophil cytoplasmic antibody with P-ANCA pattern is present.P-ANCA is most often associated with microscopic poly- arteritis, pauci-immune crescentic glomerulonephritis, or Churg-S trauss syndrome.About 5-10% Micah's granulomatosis patients and a subset of apparently "classical" polyarteritis nodosa may also be P-ANCA positive. P-ANCA associated with vasculitis or glomerulonephritis has specificity for anti-myeloperoxidase in 90% of cases; however anti-proteinase 3 (usually associated with C-ANCA) may produce P-ANCA pat tern (5%). The remaining 5% of P-ANCA+ patients have other specificities, including neutrophil elastase, bacteriocidal permeability inducer protein (BPI) , cathepsin D, and others. An "atypical" variant of P-ANCA is found in 70-75% of inflammatory bowel and liver disease patients and a subset of collagen-vascular disease patients. Atypical P-ANCA has neither anti-myeloperoxidase nor anti-proteinase 3 specificities and no confirmatory assay for it is routinely available at this time. It is strongly recommended that confirmatory testing for both anti-MPO and anti-PR3 specificity be performed before initiating immunosuppressive therapy if P-ANCA is identified and no histologic e vidence of vasculitis or pauci-immune crescentic glomerulonephritis has been documented. Johnny Thompson MD Immunopathologist Specimen Blood PROTEINASE 3 ANTIBODIES, IGG (09/16/2016 11:49 AM) Component Value Range PR3 Abs, Quantitative <0.2 0.0-0.3 AI PR3 Abs, Qualitative NegativeComment: Negative Reference Range: Negative: < 0.4 antibody index (AI) Equivocal: 0.4-0.9 AI Positive: 1.0 AI or greater Specimen Blood MYELOPEROXIDASE ANTIBODIES, IGG (09/16/2016 11:49 AM) Component Value Range MPO Abs, Quantitative 0.7(H) 0.0-0.3 AI MPO Abs, Qual Equivocal(A)Comment: Negative Reference Range: Negative: < 0.4 antibody index (AI) Equivocal: 0.4-0.9 AI Positive: 1.0 AI or greater Autoantibodies to MPO occur in several diseases and may be involved in the pathogenesis of microscopic angiitis (MPA). MPO autoantibodies are not specific for MPA and may also be detected in patients with Goodpasture syndrome, systemic necrotizing glomerulonephritis, and Churg -Starla syndrome. Specimen Blood CERULOPLASMIN (09/16/2016 11:49 AM) Component Value Range Ceruloplasmin 48 16-66 mg/dL Specimen Blood LIVER-KIDNEY MICROSOMAL AB. (09/16/2016 11:49 AM) Component Value Range Liver-Kidney Microsomal Ab. <1:10 <1:10 Specimen Blood PRIMARY BILIARY CIRRHOSIS SCREEN (09/16/2016 11:49 AM) Component Value Range PBC Antibody (Primary Biliary 100(H)Comment: 0-20 UNITS Cirrhosis) Reference Ranges: Negative:<=20 Units Equivocal: 20 - 25 Units Positive:>=25 Units Specimen Blood ACTIN ANTIBODIES IGG (09/16/2016 11:49 AM) Component Value Range Actin Abs IgG 45(H)Comment: <20 UNITS Reference Range: 1-19=normal 20 - 30=Weak positive > 30=Moderate to strong positive Specimen Blood IGG (09/16/2016 11:49 AM) Component Value Range IgG 1640(H) 700-1600 mg/dL Specimen Blood HEPATITIS A ANTIBODY (G AND M) (09/16/2016 11:49 AM) Component Value Range Hep A Virus Total Abs (IgG & IgM) Negative Negative Specimen Blood HEPATITIS A ANTIBODY-IGM (09/16/2016 11:49 AM) Component Value Range Hep A Virus IgM Antibody Negative Negative Specimen Blood GAMMA GLUTAMYLTRANSPEPTIDASE (09/16/2016 11:49 AM)Only the most recent of2 resultswithin the time period is included. Component Value Range GGT 26 5-36 U/L Specimen Blood COMPREHENSIVE METABOLIC PANEL (CMP) (09/16/2016 11:49 AM) Component Value Range Sodium 135 135-145 mEq/L Potassium 3.4(L) 3.5-5.0 mEq/L Chloride 97 95-107 mEq/L CO2 26 22-29 mEq/L Anion Gap 12 8-18 mEq/L BUN 21(H) 10-20 mg/dL Creatinine 1.2(H)Comment: 0.5-1.0 mg/dL Creatinine switched to enzymatic method on 11/26/2010.GFR equation switched to IDMS-traceable MDRD equation on 11/26/2010. Calculated GFR values are not valid in clinical settings where serum creatinine is changing. Glucose 112(H)Comment: 65-99 mg/dL The Expert Committee on the Diagnosis and Classification of Diabetes has defined impaired fasting glucose as greater than or equal to 100 mg/dL but less than 126 mg/dL.(Diabetes Care 28 (Suppl 1)S41,2005) Calcium 9.4 8.5-10.5 mg/dL Total Protein 7.1 6.0-8.0 g/dL Albumin 3.1(L) 3.4-4.8 g/dL AST 44(H)Comment: 0-32 U/L Adult reference ranges updated on 06/14/13 at 830am ALP 116(H) 35-104 U/L Bilirubin Total 2.7(H) <=1.2 mg/dL ALT 35(H)Comment: 0-33 U/L The upper limit of normal for alanine aminotransferase (ALT) reference ranges for adults is controversial with some authorities recommending limit as low as 30 U/L for males and 19 U/L for females. Th ere is increased incidence of subclinical liver disease (e.g., early steatohepatitis) in patients with ALT values in the range of 31-41 U/L for males and 20-33 U/L for females. ALT values should alway s be interpreted in conjunction with clinical history, physical examination findings, and, if applicable, data from other diagnostic tests. Calculated GFR 45(L) >60 mL/min/1.73 m2 Specimen Blood DIFFERENTIAL (08/31/2016 10:25 AM)Only the most recent of2 resultswithin the time period is included. Component Value Range % Neutrophils-Auto Diff 77.6 % Neutrophils-Auto Diff 8070(H) 9217-5138 /MM3 % Lymphocytes-Auto Diff 8.1 % Lymphocytes-Auto Diff 840(L) 875-3300 /MM3 % Monocytes-Auto Diff 9.8 % Monocytes-Auto Diff 1020(H) 130-860 /MM3 % Eosinophils-Auto Diff 3.1 % Eosinophils-Auto Diff 320 40-390 /MM3 % Basophils 1.0 % Basophils-Auto Diff 100 10-136 /MM3 % Immature Granulocytes-Auto Diff 0.4 % Immature Granulocytes-Auto Diff 40 /MM3 Specimen Whole Blood CBC (COMPLETE BLOOD COUNT) (08/31/2016 10:25 AM)Only the most recent of2 resultswithin the time period is included. Component Value Range WBC Count 10.4 3.7-10.5 K/MM3 RBC Count 4.57 4.00-5.20 M/MM3 Hemoglobin 16.3(H) 11.9-15.5 g/dL Hematocrit 45 35-47 % MCV (Mean Corpuscular Volume) 98 82-99 FL MCH (Mean Corpuscular Hemoglobin) 36(H) 25-35 PG MCHC (Mean Corpuscular Hemoglobin Concentration) 36 32-36 % Platelet Count 126(L) 150-400 K/MM3 MPV (Mean Platelet Volume) 11.5 9.4-12.3 FL RBC Dist Width-STD 66.5(H) 36.4-46.3 FL RBC Distrib Width 18.8(H) 9.0-14.5 % Nucleated RBC 0 /100 WBC Specimen Whole Blood HEPATIC FUNCTION PANEL (08/31/2016 10:25 AM) Component Value Range Albumin 3.2(L) 3.4-4.8 g/dL ALP 111(H) 35-104 U/L Bilirubin Total 3.5(H) <=1.2 mg/dL Bilirubin, Direct 0.8(H) 0.0-0.2 mg/dL AST 66(H)Comment: 0-32 U/L Adult reference ranges updated on 06/14/13 at 830am ALT 33Comment: 0-33 U/L The upper limit of normal for alanine aminotransferase (ALT) reference ranges for adults is controversial with some authorities recommending limit as low as 30 U/L for males and 19 U/L for females. Th ere is increased incidence of subclinical liver disease (e.g., early steatohepatitis) in patients with ALT values in the range of 31-41 U/L for males and 20-33 U/L for females. ALT values should alway s be interpreted in conjunction with clinical history, physical examination findings, and, if applicable, data from other diagnostic tests. Total Protein 7.8 6.0-8.0 g/dL Specimen Blood BLOOD CELL MORPHOLOGY (08/31/2016 10:25 AM)Only the most recent of2 resultswithin the time period is included. Component Value Range Polychromasia 1+ Specimen Whole Blood MAGNESIUM (08/31/2016 10:25 AM) Component Value Range Magnesium 2.0 1.5-2.9 mg/dL Specimen Blood CBC WITH DIFFERENTIAL (08/31/2016 10:25 AM)Only the most recent of2 resultswithin the time period is included. Specimen Whole Blood Narrative The following orders were created for panel order CBC WITH DIFFERENTIAL. Procedure Abnormality Status --------- ------ CBC (COMPLETE BLOOD COUNT)[[id number]] AbnormalFinal result DIFFERENTIAL[[id number]] AbnormalFinal result Please view results for these tests on the individual orders. BASIC METABOLIC PANEL W/ CALCIUM (CHEM 8) (08/31/2016 10:25 AM)Only the most recent of2 resultswithin the time period is included. Component Value Range Sodium 133(L) 135-145 mEq/L Potassium 3.1(L) 3.5-5.0 mEq/L Chloride 91(L) 95-107 mEq/L CO2 27 22-29 mEq/L Anion Gap 15 8-18 mEq/L BUN 24(H) 10-20 mg/dL Creatinine 1.0Comment: 0.5-1.0 mg/dL Creatinine switched to enzymatic method on 11/26/2010.GFR equation switched to IDMS-traceable MDRD equation on 11/26/2010. Calculated GFR values are not valid in clinical settings where serum creatinine is changing. Glucose 119(H)Comment: 65-99 mg/dL The Expert Committee on the Diagnosis and Classification of Diabetes has defined impaired fasting glucose as greater than or equal to 100 mg/dL but less than 126 mg/dL.(Diabetes Care 28 (Suppl 1)S41,2005) Calcium 9.7 8.5-10.5 mg/dL Calculated GFR 55(L) >60 mL/min/1.73 m2 Specimen Blood CHEST- PA& LATERAL (08/30/2016 1:11 PM) Impressions Findings/impression: Improved aeration of both lung mckeon. Stable chronic interstitial prominence consistent with interstitial lung disease. No focal infiltrate. Mild cardiomegaly. Pulmonary vasculature is normal. Pacemaker in place without radiographic evidence of complications. Narrative Procedure: CHEST- PA & LATERAL Clinical Indication: Interstitial lung disease Technique: PA and lateral chest radiograph Comparison: 03/01/2016 Procedure Note Christ, Incoming Imaging Results - Sun Aug 31, 2016 2:55 AM [facility] Procedure: CHEST- PA & LATERAL Clinical Indication: Interstitial lung disease Technique: PA and lateral chest radiograph Comparison: 03/01/2016 IMPRESSION Findings/impression: Improved aeration of both lung mckeon. Stable chronic interstitial prominence consistent with interstitial lung disease. No focal infiltrate. Mild cardiomegaly. Pulmonary vasculature is normal. Pacemaker in place without radiographic evidence of complications. TOTAL PROTEIN (08/30/2016 10:18 AM) Component Value Range Total Protein 7.7 6.0-8.0 g/dL Specimen Blood PT/INR (PROTHROMBIN TIME/INR) VENOUS (08/30/2016 10:18 AM)Only the most recent of2 resultswithin the time period is included. Component Value Range PT (Prothrombin Time) 13(H) 9-12 secs INR 1.3 <4.0 Specimen Blood BILIRUBIN, TOTAL (08/30/2016 10:18 AM) Component Value Range Bilirubin Total 3.6(H) <=1.2 mg/dL Specimen Blood BILIRUBIN, DIRECT (08/30/2016 10:18 AM) Component Value Range Bilirubin, Direct 0.8(H) 0.0-0.2 mg/dL Specimen Blood ASPARTATE AMINOTRANSFERASE (08/30/2016 10:18 AM) Component Value Range AST 65(H)Comment: 0-32 U/L Adult reference ranges updated on 06/14/13 at 830am Specimen Blood ALANINE AMINOTRANSFERASE (08/30/2016 10:18 AM) Component Value Range ALT 34(H)Comment: 0-33 U/L The upper limit of normal for alanine aminotransferase (ALT) reference ranges for adults is controversial with some authorities recommending limit as low as 30 U/L for males and 19 U/L for females. Th ere is increased incidence of subclinical liver disease (e.g., early steatohepatitis) in patients with ALT values in the range of 31-41 U/L for males and 20-33 U/L for females. ALT values should alway s be interpreted in conjunction with clinical history, physical examination findings, and, if applicable, data from other diagnostic tests. Specimen Blood ALKALINE PHOSPHATASE (08/30/2016 10:18 AM) Component Value Range ALP 111(H) 35-104 U/L Specimen Blood ALBUMIN (08/30/2016 10:18 AM) Component Value Range Albumin 3.3(L) 3.4-4.8 g/dL Specimen Blood CHEM 7 PANEL (08/30/2016 10:18 AM) Component Value Range Sodium 136 135-145 mEq/L Chloride 95 95-107 mEq/L Potassium 3.5 3.5-5.0 mEq/L CO2 26 22-29 mEq/L BUN 27(H) 10-20 mg/dL Creatinine 1.1(H)Comment: 0.5-1.0 mg/dL Creatinine switched to enzymatic method on 11/26/2010.GFR equation switched to IDMS-traceable MDRD equation on 11/26/2010. Calculated GFR values are not valid in clinical settings where serum creatinine is changing. Glucose 95Comment: 65-99 mg/dL The Expert Committee on the Diagnosis and Classification of Diabetes has defined impaired fasting glucose as greater than or equal to 100 mg/dL but less than 126 mg/dL.(Diabetes Care 28 (Suppl 1)S41,2005) Anion Gap 15 8-18 mEq/L Calculated GFR 50(L) >60 mL/min/1.73 m2 Specimen Blood US RUQ AND LIVER DOPPLER ([id number]) (08/30/2016 1:23 AM) Impressions Impression: 1. Final Report. 2. Coarse hepatic echotexture. Periportal hypodensity may be seen with periportal edema. 3. Monophasic antegrade flow in the portal vein with reduced velocity, in keeping with portal hypertension. 4. Abnormal waveforms within hepatic veins likely reflect underlying cardiac disease/CHF. 5. Mobile sludge within the gallbladder without ultrasound evidence of acute cholecystitis. 6. No ascites. --- Final --- Narrative [facility] Department of Radiology Ultrasound Division [address] [place] [place] [address] ULTRASOUND REPORT NAME:LALY JOSEPH Date of Service: 08/30/2016 MRN NO.: [id number] Date: 08/30/2016 Patient's : 1950 Resident/Tech: [id number] Leslie Christy Patient's Age: 66 yearsReferring MD:ANA PASCAL Indication: Other cirrhosis of liver [K74.69]Hepatic failure. Technique: Right upper quadrant grayscale ultrasound with spectral and color Doppler. Limitations: Patient was unable to hold breath. Findings: Liver: +---------+ +-------+ + :Size (cm):Echotexture:Shape:Vascularity: +---------+ +-------+ + :11.1 :Coarse echotexture.:Normal.:Normal.: +---------+ +-------+ + Liver Doppler: + +-------+ +---------+ -+ : :Patency:Waveform :Velocity :MPV Diameter: + +-------+ +---------+ -+ :Main Portal Vein :Patent :monophasic :8.9 cm/s :9.0 mm : + +-------+ +---------+ -+ :Right Portal Vein:Patent : :Antegrade: : + +-------+ +---------+ -+ :Left Portal Vein :Patent : :Antegrade: : + +-------+ +---------+ -+ :Splenic Vein :Patent :monophasic :Antegrade: : + +-------+ +---------+ -+ :Hepatic Veins:Patent :Antegrade and retrograde flow:Antegrade: : : : :visualized with Color: : : : : :Doppler. : : : + +-------+ +---------+ -+ :IVC:Patent : :Antegrade: : + +-------+ +---------+ -+ + +--------+ + ::Waveform:RI (0.55 - 0.70): + +--------+ + :Hepatic artery:Normal:.60 : + +--------+ + Gallbladder: + + + :Gallbladder contents :Mobile sludge: + + + :Gallbladder wall :Normal. 1.6 mm.: + + + :Pericholecystic fluid:Absent.: + + + :Luna's sign:Negative : + + + Biliary Tree: + + + + :Intrahepatic biliary ducts:Right liver:Left liver: + + + + ::Normal :Normal : + + + + + + + + -+ :Extrahepatic duct :Diameter (mm):Biliary dilation:Contents/Characteristics: :(common duct) : :: : + + + + -+ :Proximal:4.2:Normal :None/normal : + + + + -+ :Mid :5.6:Normal:None/normal : + + + + -+ :Distal:5.7:Normal :None/normal : + + + + -+ Spleen: Spleen measures 12.9 x 13.5 x 5.1 cm. Pancreas: The pancreas is not well visualized. Ascites: No ascites. Procedure Note Christ, Incoming Imaging Results - Sat Aug 30, 2016 12:37 PM [facility] Department of Radiology Ultrasound Division [address] [place] [address] ULTRASOUND REPORT NAME: LALY JOSEPH Date of Service: 08/30/2016 MRN NO.: [id number] Review Date: 08/30/2016 Patient's : 1950 Resident/Tech: [id number] Leslie Christy Patient's Age: 66 years Referring MD: ANA PASCAL Indication: Other cirrhosis of liver [K74.69]Hepatic failure. Technique: Right upper quadrant grayscale ultrasound with spectral andcolor Doppler. Limitations: Patient was unable to hold breath. Findings: Liver: +---------+ +-------+ + :Size (cm):Echotexture :Shape :Vascularity: +---------+ +-------+ + :11.1 :Coarse echotexture.:Normal.:Normal. : +---------+ +-------+ + Liver Doppler: + +-------+ +---------+ -+ : :Patency:Waveform :Velocity :MPV Diameter: + +-------+ +---------+ -+ :Main Portal Vein :Patent :monophasic :8.9 cm/s :9.0 mm : + +-------+ +---------+ -+ :Right Portal Vein:Patent : :Antegrade: : + +-------+ +---------+ -+ :Left Portal Vein :Patent : :Antegrade: : + +-------+ +---------+ -+ :Splenic Vein :Patent :monophasic :Antegrade: : + +-------+ +---------+ -+ :Hepatic Veins :Patent :Antegrade and retrograde flow:Antegrade: : : : :visualized with Color : : : : : :Doppler. : : : + +-------+ +---------+ -+ :IVC :Patent : :Antegrade: : + +-------+ +---------+ -+ + +--------+ + : :Waveform:RI (0.55 - 0.70): + +--------+ + :Hepatic artery:Normal :.60 : + +--------+ + Gallbladder: + + + :Gallbladder contents :Mobile sludge : + + + :Gallbladder wall :Normal. 1.6 mm.: + + + :Pericholecystic fluid:Absent. : + + + :Luna's sign :Negative : + + + Biliary Tree: + + + + :Intrahepatic biliary ducts:Right liver:Left liver: + + + + : :Normal :Normal : + + + + + + + + -+ :Extrahepatic duct :Diameter (mm):Biliary dilation:Contents/Characteristics: :(common duct) : : : : + + + + -+ :Proximal :4.2 :Normal :None/normal : + + + + -+ :Mid :5.6 :Normal :None/normal : + + + + -+ :Distal :5.7 :Normal :None/normal : + + + + -+ Spleen: Spleen measures 12.9 x 13.5 x 5.1 cm. Pancreas: The pancreas is not well visualized. Ascites: No ascites. IMPRESSION Impression: 1. Final Report. 2. Coarse hepatic echotexture. Periportal hypodensity may be seen with periportal edema. 3. Monophasic antegrade flow in the portal vein with reduced velocity, in keeping with portal hypertension. 4. Abnormal waveforms within hepatic veins likely reflect underlyingcardiac disease/CHF. 5. Mobile sludge within the gallbladder without ultrasound evidence ofacute cholecystitis. 6. No ascites. --- Final --- AMMONIA, PLASMA (08/29/2016 10:02 PM) Component Value Range Plasma Ammonia 85(H) 16-60 mol/L Specimen Blood
[2016-09-20 13:50] LABS: Hematocrit 39.4 % (37.0-47.0); Hemoglobin 13.2 gm/dL (12.5-16.0); Mean Cell Volume 107.9 fl (78-100); Mean Corpuscular Hemoglobin 36.2 pg (27-31); Mean Corpuscular Hgb Conc 33.5 g/dl (32-36); Mean Platelet Volume 9.5 fl (6.0-9.5); Neutrophil # 4.5 K/mm3 (1.3-6.0); Neutrophil % 73.3 % (42-75.0); Platelet Count 77 K/mm3 (150-450); Red Blood Count 3.65 M/mm3 (4.2-5.4); Red Cell Distribution Width 20.9 % (11.5-14.0); White Blood Count 6.1 K/mm3 (4.0-10.5)
[2016-09-20] MEDS ORDERED: ONDANSETRON HCL/PF 2 MG/ML VIAL ONE ×2 (13:51→16:32)
[2016-09-20] MEDS ORDERED: MORPHINE SULFATE 2 MG/ML DISP.SYRIN ONE (13:51)
[2016-09-20 14:01] LABS: Albumin * 2.8 gm/dl (3.4-5.0); Anion Gap 13.1 mmol/L (6.8-13.8); BUN/Creatinine Ratio 14.6 (9.0-21.6); Bilirubin, Total 3.9 mg/dL (0.0-1.1); Ca. Corrected For Albumin 9.8 mg/dL (8.4-10.2); Calcium * 9.2 mg/dL (7.9-10.9); Carbon Dioxide 27.2 mmol/L (24-32.6); Potassium 3.3 mmol/L (3.4-4.6); Total Protein 7.6 gm/dL (6.2-8.2)
[2016-09-20 14:25] LABS: Urine Appearance Slightly Cloudy; Urine Bilirubin Negative (NEGATIVE); Urine Blood 25 /ul (NEGATIVE); Urine Color Yellow; Urine Ketone Negative (NEGATIVE); Urine Nitrite Negative (NEGATIVE); Urine Protein Negative (NEGATIVE); Urine Specific Gravity 1.015 SP.GR. (1.005-1.010)
[2016-09-20 14:26] LABS: Urine Bacteria 1+; Urine RBC 0-5 /hpf (0-5); Urine WBC 0-5 /hpf (0-5)
[2016-09-20] MEDS ORDERED: MORPHINE SULFATE 4 MG/ML SYRG IV ONE (14:51)
[2016-09-20] MEDS ORDERED: MORPHINE SULFATE 4 MG/ML SYRG ONE (15:08)
--- OUTSIDE RECORDS SUMMARY | 2016-09-20 17:22 | XMS REPORT | Continuity of Care Document ---
:1950 Author Organization [facility] ([facility]) Address [address] [place] [address] Phone [phone] Care Team Providers Name Role Phone Liliana Colindres Primary Care Provider [phone] Source Comments This disclosure is being made pursuant to the Care Everywhere program, applicable federal and state laws, and may not contain all informaitonavailable regarding this patient.[facility] ([facility]) Active Allergies and Adverse Reactions Allergen [...] daily. mcg/actuation inhaler fluticasone 50 Use 1 [place] 08/30/19 Discontinued mcg/Actuation nasal into both 17 [...] 12/04/2015 Shortness of breath 12/03/2015 CAD in [place] artery 10/01/2015 Last Assessment & Plan: - Inferior wall [place] in 2008 - S/p multiple stents 2008 [...] be different from the original. 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 Alcohol Use Drinks/Week oz/Week Comments No 0 Standard drinks or equivalent 0.0 Last Filed Vital Signs Vital Sign Reading Time Taken Blood Pressure 95/74 09/16/2016 9:55 AM PLANT SUPERVISOR Pulse 94 09/16/2016 9:55 AM PLANT SUPERVISOR Temperature 35.8 C (96.4 F) 09/16/2016 9:55 AM PLANT SUPERVISOR Respiratory Rate 18 09/02/2016 10:47 AM PLANT SUPERVISOR Height 1.6 m (5' 2.99") 09/16/2016 9:55 AM PLANT SUPERVISOR Weight 72.9 kg (160 lb 11.5 oz) 09/16/2016 9:55 AM PLANT SUPERVISOR Body Mass Index 28.48 09/16/2016 9:55 AM PLANT SUPERVISOR Oxygen Saturation 98% 09/02/2016 10:47 AM PLANT SUPERVISOR Plan of Care Date Type Specialty Providers Description 10/01/2016 Appointment Radiology Chief Comp: Patient Reported Reason For Visit 10/01/2016 Appointment Respiratory Therapy Default, Other Billg Chief Comp : Patient - Defo Reported Reason For [address] [place] [address] [phone] (Fax) 10/01/2016 Appointment Med Pulmonary Default, Other Billg - Defo [address] [place] [address] [phone] (Fax) Chief Comp: Patient Lesvia Mg ARNP [address] [place] [address] [phone] (Fax) Reported Reason For Visit 10/28/2016 Appointment Heart and Vascular Clarisse Lugo MD Subj: Appointment [address] [place] [address] [phone] (Fax) 12/01/2016 Appointment Med GI/Hepatology Chapin Prescott, Subj: Appointment Scheduled [address] [place] [address] [phone] (Fax) 01/06/2017 Appointment Heart and Vascular Terrie Luis ARNP Chief Comp: Patient [address] [place] [place] [address] Visit [phone] (Fax) Health Maintenance Due Date Last Done [...] Neutrophils-Auto Diff 77.6 % Neutrophils-Auto Diff 8070(H) 4169-4628 /MM3 % Lymphocytes-Auto Diff 8.1 % Lymphocytes-Auto [...] Abnormality Status --------- ------ CBC (COMPLETE BLOOD COUNT)[[id number]] AbnormalFinal result DIFFERENTIAL[[id number]] AbnormalFinal result Please view results for these [...] - Sun Aug 31, 2016 2:55 AM PLANT SUPERVISOR Procedure: CHEST- PA & LATERAL Clinical Indication: [...] Specimen Blood US RUQ AND LIVER DOPPLER ([id number]) (08/30/2016 1:23 AM) Impressions Impression: 1. Final [...] 6. No ascites. --- Final --- Narrative [facility] Department of Radiology Ultrasound Division [address] [place] [address] ULTRASOUND REPORT NAME:LALY JOSEPH Date of Service: 08/30/2016 MRN NO.: [id number] Date: 08/30/2016 Patient's : 1950 Resident/Tech: [id number] [...] - Sat Aug 30, 2016 12:37 PM [facility] Department of Radiology Ultrasound Division [address] [place] [address] ULTRASOUND REPORT NAME: LALY JOSEPH Date of Service: 08/30/2016 MRN NO.: [id number] Review Date: 08/30/2016 Patient's : 1950 Resident/Tech: [...]
[2016-09-20] MEDS ORDERED: METOLAZONE 2.5 MG TABLET PO ONE (17:31)
[2016-09-20] MEDS ORDERED: FUROSEMIDE 10 MG/ML VIAL IV ONE (17:32)
[2016-09-20] MEDS ORDERED: SPIRONOLACTONE 100 MG TABLET PO ONE (17:45)
[2016-09-20] MEDS ORDERED: SPIRONOLACTONE 25 MG TABLET ONE (18:44)
[2016-09-20] MEDS ORDERED: METOLAZONE 2.5 MG TABLET ONE (18:45)
[2016-09-20] MEDS ORDERED: FUROSEMIDE 10 MG/ML VIAL ONE ×2 (18:45→18:46)
--- NOTE | 2016-09-20 20:17 | HP ---
Chief Complaint - Chief Complaint Date of Service: 09/20/16 Time of Service: 20:19 Chief Complaint: Abdominal pain and CHF exacerbation History of Present Illness: 66 years old female adm to the hospital with reports of shortness of breath and left lower quadrant pain. PMH significant for CAD, chronic A. fib on Eliquis , BiV pacemaker in 03/2016, PAD, HLD, COPD/ILD home oxygen 3L nasal cannula. Pt stated she was last adm 08/26/16 and today while getting ready for judaism she hand constant abdominal pain, that got progressively worst. She had enema in ER but only was able to pass gas. X-Ray abdomen mild/moderate fecal retention. While in room she denies abdominal pain and report nausea and vomiting. Plan of care discussed with pt she verbalized understanding and agree. 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 Patient History - Cancer: No Hx of Cancer Patient History - Surgical Procedures: Cataracts, Cardiac stent, Pacemaker - 2015 Biventricular pacer, Tubal Ligation Patient History - Other: None LMP (females 10-50): Menopausal - Family History Mother Family History - Medical: Diabetes Type 1 Family History - Cardiac/Respiratory: Hypertension Father Family History - Medical: Anxiety Family History - Cardiac/Respiratory: Coronary Heart Disease Brother Family History - Medical: Family History - Cardiac/Respiratory: COPD - Social History Living Situations: spouse Abuse History: No History of abuse Psych History: Hx of Depression Does anyone smoke in the home?: No Smoking Status: Former smoker Have you smoked in the past 12 months: No Do you dip or chew tobacco: No Patient requests Smoking Cessation Consult: No Initiate information on Smoking Cessation: No Alcohol Use: none Drug Use: none - Immunizations Immunizations Up to Date: Yes Hx Pneumococcal Vaccination: Yes History of Influenza Vaccine: Yes Review Of Systems (GEN) - Review of Systems Generalized/Overall Review: Present: No Symptoms Reported EENTM: Present: No Symptoms Reported Respiratory: Present: Shortness of Breath, Orthopnea Cardiac: Present: Edema Abdominal: Present: Nausea, Vomiting, Constipation Genitourinary: Present: No Symptoms Reported Musculoskeletal: Present: No Symptoms Reported Neurological: Present: No Symptoms Reported Skin: Present: No Symptoms Reported Immunizations: IMMUNIZATION HX Immunizations Up to Date Yes History of Influenza Vaccine Yes Hx Pneumococcal Vaccination Yes Allergies/Adverse Reactions: Allergies Allergy/AdvReac Type Severity Reaction Status Date / Time nitrofurantoin Allergy Nausea Verified 09/20/16 13:15 macrocrystalline [From Macrodantin] Sulfa (Sulfonamide Allergy Verified 09/20/16 13:15 Antibiotics) amiodarone AdvReac Verified 09/20/16 13:15 lisinopril AdvReac Cough Verified 09/20/16 13:15 Home Medications: HOME MEDICATIONS Levothyroxine Sodium [Synthroid] 50 mcg PO DAILY 09/06/13 [Last Taken 09/20/16 11:00] Lorazepam 1 mg PO QID 09/06/13 [Last Taken 09/27/15] Cholecalciferol (Vitamin D3) [Vitamin D3] 2,000 unit PO DAILY #30 tablet [Last Taken 09/20/16] Apixaban [Eliquis] 5 mg PO BID 03/01/16 [Last Taken 09/20/16 09:00] Ipratropium/Albuterol Sulfate [Combivent Respimat Inhal [place]] 1 inh IH QID PRN 03/01/16 [Last Taken 08/25/16 09:00] Multivitamin [One Daily Essential] 1 each PO DAILY 03/01/16 [Last Taken 09/20/16 ] Fluticasone Propionate [Flonase Allergy Relief] 1 spray NS DAILY 07/23/16 [Last Taken 09/20/16] Acetaminophen [Tylenol] 325 mg PO Q4H PRN 07/29/16 [Last Taken Unknown] Carvedilol [Coreg] 3.125 mg PO BID 08/25/16 [Last Taken 09/20/16 09:00] Bumetanide [Bumex] 4 mg PO DAILY@1100 #60 tablet 08/26/16 [Last Taken 09/20/16] Metolazone [Zaroxolyn] 2.5 mg PO DAILY@1030 #30 tablet 08/26/16 [Last Taken 11/03 10:30] Spironolactone [Aldactone] 50 mg PO DAILY@1100 #30 tablet 08/26/16 [Last Taken 09/20/16 11:00] Potassium Chloride 20 meq PO DAILY 09/20/16 [Last Taken 09/19/16 21:00] Exam - Exam Vital Signs: Vital Signs - Last Taken Temp 36.4 C L 09/20/16 18:09 Pulse 63 09/20/16 19:23 Resp 16 09/20/16 18:09 BP 91/63 09/20/16 19:23 Pulse Ox 90 09/20/16 18:09 Constitutional: Present: Alert, Oriented x3, Cooperative, Well developed, No distress, Middle aged ENT Exam: Present: moist mucous membranes Eye Exam: bilateral eye: PERRL Neck: Present: full range of motion Back Exam: Present: no CVA tenderness Breasts: Present: Exam deferred Respiratory: Present: chest non-tender, normal breath sounds, decreased breath sounds Cardiovascular/Chest: Present: regular rate, rhythm, no chest tenderness, no gallop, no JVD, systolic murmur, edema - BLE Peripheral Pulses: dorsalis-pedis (R): 2+, dorsalis-pedis (L): 2+ Abdomen: Present: Normal bowel sounds, soft, nontender, nondistended, no rebound tenderness /Rectal: Present: Exam deferred Extremity: Present: normal range of motion, non-tender, normal inspection, lower extremity edema, pedal edema, slow capillary refill Skin Exam: Present: normal color, warm/dry, no cyanosis Neurologic: Present: oriented x 3 Appearance: Present: appropriate appearance Eye contact: Present: cooperative, good eye contact Thoughts: Present: normal thought pattern Diagnostic Studies: Laboratory Results WBC 6.1 K/mm3 (4.0-10.5) 09/20/16 13:40 RBC 3.65 M/mm3 (4.2-5.4) L 09/20/16 13:40 Hgb 13.2 gm/dL (12.5-16.0) 09/20/16 13:40 Hct 39.4 % (37.0-47.0) 09/20/16 13:40 MCV 107.9 fl (78-100) H 09/20/16 13:40 MCH 36.2 pg (27-31) H 09/20/16 13:40 MCHC 33.5 g/dl (32-36) 09/20/16 13:40 RDW 20.9 % (11.5-14.0) H 09/20/16 13:40 Plt Count 77 K/mm3 (150-450) L 09/20/16 13:40 MPV 9.5 fl (6.0-9.5) 09/20/16 13:40 Immature Gran % (Auto) 0.20 % (0.001-0.429) 09/20/16 13:40 Immature Gran # (Auto) 0.01 K/mm3 (0.000-0.0310) 09/20/16 13:40 Neutrophils % 73.3 % (42-75.0) 09/20/16 13:40 Lymphocytes % 14.5 % (20-51) L 09/20/16 13:40 Monocytes % 7.7 % (0.0-9) 09/20/16 13:40 Eosinophils % 3.3 % (0.0-3.0) H 09/20/16 13:40 Basophils % 1.0 % (0.0-1.0) 09/20/16 13:40 Nucleated RBC % 0.0 k/mm3 (0-1) 09/20/16 13:40 Neutrophils # 4.5 K/mm3 (1.3-6.0) 09/20/16 13:40 Lymphocytes # 0.9 k/mm3 (1.5-3.5) L 09/20/16 13:40 Monocytes # 0.5 k/mm3 (0.0-1.0) 09/20/16 13:40 Eosinophils # 0.2 k/mm3 (0.0-0.7) 09/20/16 13:40 Absolute Basophils 0.1 k/mm3 (0.0-0.1) 09/20/16 13:40 Sodium 139 mmol/L (132-142) 09/20/16 13:40 Plasma Sodium 140 mmol/L (130-142) 09/20/16 13:40 Potassium 3.3 mmol/L (3.4-4.6) L 09/20/16 13:40 Chloride 102 mmol/L (97-106) 09/20/16 13:40 Carbon Dioxide 27.2 mmol/L (24-32.6) 09/20/16 13:40 Anion Gap 13.1 mmol/L (6.8-13.8) 09/20/16 13:40 BUN 21 mg/dL (3-23) 09/20/16 13:40 Creatinine 1.44 mg/dL (0.4-1.4) H 09/20/16 13:40 Est GFR (Non-Af Amer) 39 mL/min (60-130) L D 09/20/16 13:40 BUN/Creatinine Ratio 14.6 (9.0-21.6) 09/20/16 13:40 Random Glucose 138 mg/dL (70-110) H 09/20/16 13:40 Calcium 9.2 mg/dL (7.9-10.9) 09/20/16 13:40 Calcium Adj for Albumin 9.8 mg/dL (8.4-10.2) 09/20/16 13:40 Total Bilirubin 3.9 mg/dL (0.0-1.1) H 09/20/16 13:40 AST 47 U/L (0-48) 09/20/16 13:40 ALT 39 U/L (19-67) 09/20/16 13:40 Alkaline Phosphatase 129 U/L (50-170) 09/20/16 13:40 B-Natriuretic Peptide 1335 pg/mL (5-325) H 09/20/16 14:00 Total Protein 7.6 gm/dL (6.2-8.2) 09/20/16 13:40 Albumin 2.8 gm/dl (3.4-5.0) L 09/20/16 13:40 Urine Color Yellow 09/20/16 14:07 Urine Appearance Slightly cloudy 09/20/16 14:07 Urine pH 6.0 pH (5.0-7.0) 09/20/16 14:07 Ur Specific [place] 1.015 SP.GR. (1.005-1.010) 09/20/16 14:07 Urine Protein Negative mg/dL (NEGATIVE) 09/20/16 14:07 Urine Glucose (UA) Negative mg/dL (NEGATIVE) 09/20/16 14:07 Urine Ketones Negative mg/dL (NEGATIVE) 09/20/16 14:07 Urine Blood 25 /ul (NEGATIVE) H 09/20/16 14:07 Urine Nitrate Negative (NEGATIVE) 09/20/16 14:07 Urine Bilirubin Negative mg/dl (NEGATIVE) 09/20/16 14:07 Urine Urobilinogen 2.0 EU/dl (NORMAL) H 09/20/16 14:07 Ur Leukocyte Esterase Negative /ul (NEGATIVE) 09/20/16 14:07 Urine RBC 0-5 /hpf (0-5) 09/20/16 14:07 Urine WBC 0-5 /hpf (0-5) 09/20/16 14:07 Ur Epithelial Cells 0-5 /hpf (0-5) 09/20/16 14:07 Urine Bacteria 1+ (NONE) H 09/20/16 14:07 Urine Culture Comments No culture indicated 09/20/16 14:07 Assessment/Plan - Narrative Narrative: Acute on chronic diastolic heart failure: 12/2014 Echo- EF 58% LV normal, mild MR and AAA 4.8cm: May have echo done out- pt and follow up with PCP Lasix 120mg x1, Metolazone 2.5 mg PO x1, spironolactone 100 mg PO x 1 given in ER Supplemented oxygen to be titrated to maintain saturation of 90% and greater. On adm BNP 1335---> Daily weight and strict I/O Monitor BMP in am May resume home dose of medications Coreg, Metalozone and bumex Constipation X-Ray abdomen fecal retention Enema given in ER, if no bowel movement may repeat enema Zofran PRN Hypokalemia- likely due to diuretic and fluid overload On adm K+ 3.3, she was given Lasix and Spironolactone monitor BMP in am COPD/ILD on 3 L of O2: Continue Combivent and inhaler 1-2 puffs 4 times a day and O2 2-4 L. Chronic A. fib: stable Continue Eliquis 5 mg PO BID. S/P biventricular pacemaker placement 03/2016. Chronic Hyperlipidemia:stable Continue atorvastatin 20 mg PO daily. Liver cirrhosis: History of macrocytic anemia with low platelets -stable On adm PLT 77 Code status: Full VTE ppx Therapeutic Eliquis Anticipated discharge in 0-1 day, follow up with PCP Time 35 minutes - Assessment/Plan (1) CHF (congestive heart failure) Problem: Chronic Qualifiers: Congestive heart failure type: unspecified congestive heart failure type Congestive heart failure chronicity: acute on chronic Qualified Code(s): I50.9 - Heart failure, unspecified (2) Atrial fibrillation Problem: Chronic (3) CAD (coronary artery disease), [place] coronary artery Problem: Chronic Qualifiers: [place] vs. transplanted heart: jackson heart Associated angina: without angina Qualified Code(s): I25.10 - Atherosclerotic heart disease of jackson coronary artery without angina pectoris (4) COPD/ILD on 2-3L O2 Problem: Chronic
[2016-09-20] MEDS ORDERED: APIXABAN 5 MG PO SCH (21:00)
[2016-09-20] MEDS ORDERED: ACETAMINOPHEN 325 MG TABLET PO PRN (21:01)
[2016-09-20] MEDS ORDERED: ALBUTEROL SULFATE/IPRATROPIUM 3 ML NEBU IH PRN (21:30)
[2016-09-20] MEDS: CARVEDILOL 3.125 MG TABLET PO SCH (21:40)
[2016-09-20] MEDS: LORazepam 1 MG TABLET PO SCH (21:41)
[2016-09-20] MEDS: APIXABAN 2.5 MG TABLET PO SCH (21:43)
[2016-09-20] MEDS: ONDANSETRON HCL/PF 2 MG/ML VIAL IV PRN (22:25)
[2016-09-21 05:42] LABS: BUN/Creatinine Ratio 17.8 (9.0-21.6); Calcium * 9.3 mg/dL (7.9-10.9); Carbon Dioxide 23.6 mmol/L (24-32.6); Estimated Creat Clear 31.4; Potassium 3.6 mmol/L (3.4-4.6)
[2016-09-21] MEDS ORDERED: LEVOTHYROXINE SODIUM 50 MCG TABLET PO SCH (07:00)
[2016-09-21] MEDS: LORazepam 1 MG TABLET PO SCH ×3 (08:50→16:06)
[2016-09-21] MEDS: APIXABAN 2.5 MG TABLET PO SCH (08:51)
[2016-09-21] MEDS: CARVEDILOL 3.125 MG TABLET PO SCH (08:53)
[2016-09-21] MEDS ORDERED: FLUTICASONE PROPIONATE 120 SPRAY INHALER NS SCH (09:00)
[2016-09-21] MEDS ORDERED: MULTIVITAMINS 1 TAB TAB.CHEW PO SCH (09:00)
[2016-09-21] MEDS ORDERED: CHOLECALCIFEROL 1,000 UNIT CAPSULE PO SCH (09:00)
[2016-09-21] MEDS ORDERED: LACTULOSE 10 G/15 ML BTL PO ONE ×2 (10:15→14:30)
[2016-09-21] MEDS ORDERED: METOLAZONE 2.5 MG TABLET PO SCH (10:30)
[2016-09-21] MEDS ORDERED: BUMETANIDE 1 MG TABLET PO SCH (11:00)
[2016-09-21] MEDS ORDERED: SPIRONOLACTONE 25 MG TABLET PO SCH (11:00)
[2016-09-21] MEDS: ONDANSETRON HCL/PF 2 MG/ML VIAL IV PRN (14:36)
--- NOTE | 2016-09-21 17:38 | DS ---
(1) (HFpEF) heart failure with preserved ejection fraction Problem: Acute (2) Confusion with non-focal neuro exam Problem: Acute (3) COPD/ILD on 2-3L O2 Problem: Chronic (4) Cirrhosis of liver Problem: Chronic Qualifiers: Hepatic cirrhosis type: unspecified hepatic cirrhosis Ascites presence: without ascites Qualified Code(s): K74.60 - Unspecified cirrhosis of liver (5) Atrial fibrillation, chronic Diagnosis(s): on eliquis ; BiV and PCM. Problem: Chronic Description of Stay: DATE OF ADMISSION: 09/20/2016. DATE OF DISCHARGE: 09/21/2016. HOSPITAL COURSE: Malorie Joseph is a 66-year-old WF with history of CAD[stent to RCA in 2008], chronic A. fib on Eliquis 5 mg PO BID, BiV PCM [03/2016], COPD/ILD on 2-4 L O2, cirrhosis of liver who was admitted to the hospital because of shortness of breath and abdominal discomfort. Patient has significant edema for lower extremities. Patient has been getting confused due to an elevation in ammonia levels if diuresed due to CHF. A little elevation in BUN/CR levels is causing quite a bit of confusion in the patient. Neuro findings were non-focal. Discussed in detail with the and son who is the POA. She may benefit from getting lactulose 3-4 times a week when confused and furosemide/ spironolactone the rest of the days. She may benefit from going into hospice as she is getting hospitalized more and more frequently /her response to IV diuretics is gradually diminishing; adding morphine at bedtime to improve breathing and anxiety ia another option. Discussed about getting home health care for getting more frequent blood draws etc, however patient has to be home bound. Family would like to think about all the above options. She has seen cardiology, pulmonology and gastroenterology for her above problems. Patient's baseline is dyspnea at rest and there has been no improvement overall. The patient was discharged on 09/21/2016. The son and are going to call me in a day or two regarding furthur follow up. Procedures Performed: none Discharge Disposition: Home self care Disposition: Home self-care Condition: Poor Discharge Activity: Activity as tolerated Discharge Diet: Low fat/chol, High Fiber Referrals: Liliana Colindres MD [Primary Care Provider] - Problem Oriented Discharge Instructions to Patient/Family: Heart Failure, Easy- to-Read, CHF Patient Instructions Additional Patient Instructions (free text): Bumex/spironolactone on Thursday//Thursday. Lactulose 30 mL on rest of the days. Can double up if no BM. Give 15 mL of lactulose on rest of the days if patient does not have a BM and cut back on the Bumex. If patient is confused- she needs lactulose.. Prescriptions (Any new or edited meds): Bumetanide [Bumex] 3 mg PO DAILY@1100 #.1 tablet Lactulose [Enulose] 20 gm PO DAILY #1 btl traMADol HCL [Ultram] 50 mg PO BID #.1 tablet Complete Home Medications List: Complete Home Medication List: Levothyroxine Sodium [Synthroid] 50 mcg PO DAILY 09/06/13 Lorazepam 1 mg PO QID 09/06/13 Cholecalciferol (Vitamin D3) [Vitamin D3] 2,000 unit PO DAILY #30 tablet Apixaban [Eliquis] 5 mg PO BID 03/01/16 Ipratropium/Albuterol Sulfate [Combivent Respimat Inhal [place]] 1 inh IH QID PRN 03/01/16 Multivitamin [One Daily Essential] 1 each PO DAILY 03/01/16 Fluticasone Propionate [Flonase Allergy Relief] 1 spray NS DAILY 07/23/16 Carvedilol [Coreg] 3.125 mg PO BID 08/25/16 Spironolactone [Aldactone] 50 mg PO DAILY@1100 #30 tablet 08/26/16 Potassium Chloride 20 meq PO DAILY 09/20/16 Bumetanide [Bumex] 3 mg PO DAILY@1100 #.1 tablet 09/21/16 Lactulose [Enulose] 20 gm PO DAILY #1 btl 09/21/16 traMADol HCL [Ultram] 50 mg PO BID #.1 tablet 09/21/16
[2016-09-21 23:49] VITALS: BP 105/75
[2016-09-22] MEDS ORDERED: FLUTICASONE PROPIONATE 120 SPRAY INHALER NS SCH (09:00)
== END 2016-09-21 19:45 | disposition home or self-care (01) ==
LOC: ER 13:05 → MS 17:17
PROVIDERS: ADMIT Internal Medicine; ATTEND Internal Medicine
DX: I50.33 Acute on chronic diastolic (congestive) heart failure (principal); J44.9 Chronic obstructive pulmonary disease, unspecified; I25.10 Atherosclerotic heart disease of native coronary artery without angina pectoris; Z87.891 Personal history of nicotine dependence; R41.0 Disorientation, unspecified; K74.60 Unspecified cirrhosis of liver; I48.2 Chronic atrial fibrillation; I10 Essential (primary) hypertension
CPT/HCPCS: 36415; 36600; 71020; 74020; 80048; 80053; 81001; 82140; 82803; 83880; 85025; 96374; 96375; 96376; 99284; G0378